=== PATIENT | female | born 1985 | race Caucasian/White ===

== ENCOUNTER → 2017-01-04 | Outpatient (CLI) | payer BC ==
[~2017-01-04] MED LIST: AMOX250S70 PO; CATHETER FLUSH 10 ML SYR IV PRN; DOXY100T2 PO
--- OUTSIDE RECORDS SUMMARY | 2017-01-04 09:59 | XMS REPORT | Continuity of Care Document ---
Author Author [facility] Address Unknown Phone Unavailable Allergies Active Description Code Type Severity Reaction Onset Reported/Identified Relationship to Patient Clinical Status Yes CITRUS CITRUS Unknown N/A 10/25/2012 Yes egg [id number] Drug Allergy Unknown N/A 10/25/2012 Yes Sulfa (Sulfonamide Antibiotics) [id number] Drug Allergy Unknown HIVES 10/25/2012 Medications Problems Date Dx Coded Attending Type Code Diagnosis Diagnosed By 10/25/2012 Ot 620.2 OVARIAN CYST NEC/NOS 10/25/2012 Ot 789.03 ABDOMINAL PAIN, RIGHT LOWER QUADRANT 08/05/2014 PREETHI MORTENSEN DO V74.1 TB SCREENING 01/06/2016 Ot 620.2 01/06/2016 Ot 789.04 04/12/2016 STOOALIYAH E ASSISTED LIVING CARE MANAGER Ot N83.9 NONINFLAMMATORY DISORD OF OVARY, FALLOP 04/13/2016 SOTO ALIYAH E ASSISTED LIVING CARE MANAGER Ot N83.9 NONINFLAMMATORY DISORD OF OVARY, FALLOP 05/24/2016 Ot 620.2 OVARIAN CYST NEC/NOS 05/24/2016 Ot 789.04 ABDOMINAL PAIN, LEFT LOWER QUADRANT 05/30/2016 SOTOALIYAH E ASSISTED LIVING CARE MANAGER Ot N83.9 NONINFLAMMATORY DISORD OF OVARY, FALLOP 07/27/2016 Ot 620.2 OVARIAN CYST NEC/NOS 07/27/2016 Ot 789.04 ABDOMINAL PAIN, LEFT LOWER QUADRANT 10/31/2016 Ot 620.2 OVARIAN CYST NEC/NOS 10/31/2016 Ot 789.04 ABDOMINAL PAIN, LEFT LOWER QUADRANT 10/31/2016 Ot 620.2 OVARIAN CYST NEC/NOS 10/31/2016 Ot 789.04 ABDOMINAL PAIN, LEFT LOWER QUADRANT 11/16/2016 SOTOALIYAH E ASSISTED LIVING CARE MANAGER Ot N83.9 NONINFLAMMATORY DISORD OF OVARY, FALLOP 11/16/2016 RANDI BURROUGHS ASSISTED LIVING CARE MANAGER Ot G43.A0 CYCLICAL VOMITING, NOT INTRACTABLE 11/16/2016 RANDI BURROUGHS ASSISTED LIVING CARE MANAGER Ot R10.11 RIGHT UPPER QUADRANT PAIN 11/17/2016 RANDI BURROUGHS ASSISTED LIVING CARE MANAGER Ot G43.A0 CYCLICAL VOMITING, NOT INTRACTABLE 11/17/2016 RANDI BURROUGHS ASSISTED LIVING CARE MANAGER Ot R10.11 RIGHT UPPER QUADRANT PAIN 12/04/2016 RANDI BURROUGHS ASSISTED LIVING CARE MANAGER Ot G43.A0 CYCLICAL VOMITING, NOT INTRACTABLE 12/04/2016 RANDI BURROUGHS ASSISTED LIVING CARE MANAGER Ot R10.11 RIGHT UPPER QUADRANT PAIN Procedures Code [place] [address] TB TEST INTRADERMAL 08/05/2014 Results Encounters ACCT No. Visit Date/Time Discharge Status Pt. Type Provider Facility Loc./Unit Complaint [id number] 08/05/2014 14:58:00 08/05/2014 23: 59:59 [facility] Outpatient PREETHI MORTENSEN DO
--- NOTE | 2017-01-04 13:14 | Diagnostic Imaging Report ---
CLINICAL INDICATION: Patient with epigastric pain. COMPARISON: Gallbladder ultrasound dated 11/16/2016. PROCEDURE: The patient was administered 5.42 millicuries of technetium 99m Choletec. After 60 minutes of the images, one can of Ensure was drink followed by another 60 minutes of imaging. A nuclear medicine hepatobiliary scan with ejection fraction was performed. FINDINGS: There is prompt uptake and excretion of radiotracer by the liver. Activity is visible in the gallbladder by 15 minutes and the small bowel by 30 minutes. Ejection fraction of the gallbladder is calculated at 76% (normal >35%). The gallbladder visibly empties on the scans following the ingestion of Ensure. IMPRESSION: Normal hepatobiliary scan with normal gallbladder ejection fraction of 76%. Dictated by: Dictated on workstation # [id number]
== END ==
LOC: CARD 09:56
PROVIDERS: ATTEND Nurse Practitioner
DX: R10.13 Epigastric pain (principal); R11.2 Nausea with vomiting, unspecified
CPT/HCPCS: 78227

== ENCOUNTER → 2017-03-13 | Emergency (ER) | payer BC ==
[~2017-03-13] VITALS: Ht 170.2 cm; Wt 61.2 kg
[~2017-03-13] MED LIST changes: -CATHETER FLUSH 10 ML SYR IV PRN; +TETANUS,DIPTH,PERTUSS P/F (BOOSTRIX) 0.5 ML VIAL IM ONE
--- NOTE | 2017-03-13 11:13 | ED General ---
General Chief Complaint: Bite-Animal/Human/Insect Stated Complaint: CAT BITES LEFT HAND Nursing Triage Note: c/o numerous cat bites to left arm and left leg. It was the patient's own cat. Mild swelling and bruising noted. Nursing Sepsis Screen: No Definite Risk Source of Information: Patient Exam Limitations: No Limitations History of Present Illness Time Seen by Provider: 10:30 Initial Comments Patient presents with numerous cat bites on her fingers, forearms, and left leg along with numerous scratches. She has an aggressive unneutered male cat at home who has attacked her several times. The cat is vaccinated and used for breeding purposes. The incident happened yesterday. Pain has been persistent and she has localized erythema and swelling around the majority of the wounds. She has not yet taken antibiotics. She did take a shower quickly after the accident and washed her wounds. Allergies and Home Medications Allergies Coded Allergies: Sulfa (Sulfonamide Antibiotics) (Verified Allergy, Unknown, HIVES, 01/04/17) egg (Verified Allergy, Unknown, 10/25/12) Uncoded Allergies: CITRUS (Allergy, Unknown, 10/25/12) Home Medications Amoxicillin/Potassium Clav 250 Mg/5 Ml Susp.recon, 10 ML PO BID, #200 Prescribed by: LORENZO MOONEY on 03/13/17 1111 Doxycycline Hyclate 100 Mg Tablet, 100 MG PO BID, #14 Prescribed by: LORENZO MOONEY on 03/13/17 1111 Constitutional: no symptoms reported EENTM: no symptoms reported : No Musculoskeletal: see HPI Skin: see HPI Psychiatric/Neurological: No Symptoms Reported Past Viaabrp-Vjuqsu-Vfpqby Hx Patient Social History Alcohol Use: Denies Use Recreational Drug Use: No Smoking Status: Never a Smoker Recent Foreign Travel: No Contact w/Someone Who Travel: No Recent Infectious Disease Expo: No Recent Hopitalizations: No Surgeries HX Surgeries: No Respiratory Hx Respiratory Disorders: No Cardiovascular Hx Cardiac Disorders: No Neurological Hx Neurological Disorders: No Reproductive System Hx Reproductive Disorders: No Genitourinary Hx Genitourinary Disorders: No Gastrointestinal Hx Gastrointestinal Disorders: Yes Gastrointestinal Disorders: Gastroesophageal Reflux Musculoskeletal Hx Musculoskeletal Disorders: No Endocrine Hx Endocrine Disorders: No HEENT HX ENT Disorders: No Cancer Hx Cancer: No Psychosocial Hx Psychiatric Problems: No Integumentary HX Skin/Integumentary Disorder: No Blood Transfusions Hx Blood Disorders: No Physical Exam Vital Signs Vital Sign - Last 12Hours 03/13/17 10:52 Temp 97.5 Pulse 82 Resp 16 B/P (MAP) 110/82 Pulse Ox 100 Capillary Refill : Less Than 3 Seconds General Appearance: No Apparent Distress, WD/WN HEENT: Normal ENT Inspection Respiratory: No Respiratory Distress Extremity: Other (numerous punctures, abrasions, and scratches throughout both upper extremities and the left lower extremity. The left hand is the most injured portion of her body. There is localized swelling and erythema around many of the wounds.) Neurologic/Psychiatric: Alert, Oriented x3, No Motor/Sensory Deficits, Normal Mood/Affect, licensing worker II-XII Norm as Tested Skin: Normal Color, Warm/Dry, Other (see above) Progress/Results/Core Measures Results/Orders Vital Signs/I&O Blood Pressure Mean: 91 Progress Note : Progress Note Patient requested small pills or liquid medication as she has difficulty swallowing large pills. She denied as she has not had intercourse in 3 months and had a recent menstrual cycle. Because of the presence of swelling and erythema around her wounds, double therapy was provided with Augmentin and doxycycline. 03/16/17 - Tetanus immunization was not administered prior to patient departure. Patient was contacted by phone and advised to return for this immunization. She stated she intended to return after work to have the tetanus booster administered. Patient did not show. Departure Impression Impression: Primary Impression: Cat bite Qualified Codes: W55.01XA - Bitten by cat, initial encounter Disposition: HOME, SELF-CARE Condition: Stable Departure-Patient Inst. Decision time for Depature: 11:08 Referrals: ABAD CÁRDENAS DO (PCP/Family) Primary Care Physician Patient Instructions: Animal Bites (DC) Add. Discharge Instructions: You may take Ibuprofen up to 600 mg every 6 hours as needed for pain. Add Tylenol up to 650 mg every 4 hours as needed for additional pain relief. Complete your antibiotics as prescribed. Return to care if symptoms worsen. All discharge instructions reviewed with patient and/or family. Voiced understanding. Scripts Amoxicillin/Potassium Clav (Augmentin 250-62.5 mg/5 ml) 250 Mg/5 Ml Susp.recon 10 ML PO BID, #200 ML Prov: LORENZO MORA MD 03/13/17 Doxycycline Hyclate (Doxycycline Hyclate) 100 Mg Tablet 100 MG PO BID, #14 TAB Prov: LORENZO MORA MD 03/13/17 LORENZO MORA MD Mar 13, 2017 11:13
[2017-03-13 11:23] VITALS: BP 108/70
== END | disposition home or self-care (01) ==
LOC: EDUNIT# 10:29 → ER 10:31
DX: S61.452A Open bite of left hand, initial encounter (principal); S50.812A Abrasion of left forearm, initial encounter; S80.812A Abrasion, left lower leg, initial encounter; W55.01XA Bitten by cat, initial encounter; W55.03XA Scratched by cat, initial encounter; Y92.009 Unspecified place in unspecified non-institutional (private) residence as the place of occurrence of the external cause; Y99.8 Other external cause status
CPT/HCPCS: 99283

== ENCOUNTER → 2017-08-24 | Outpatient (CLI) | payer BC ==
[~2017-08-24] MED LIST changes: -TETANUS,DIPTH,PERTUSS P/F (BOOSTRIX) 0.5 ML VIAL IM ONE
--- NOTE | 2017-08-24 17:46 | Diagnostic Imaging Report ---
INDICATION: Pelvic pain x3 years. COMPARISON: 01/31/2016. FINDINGS: The uterus measures 6.7 x 4.6 x 3.6 cm. Endometrial stripe measures 6 mm. No myometrial masses are seen. The right ovary is not well visualized though does not appear enlarged. The left ovary measures 3.7 x 3.1 x 2.5 cm. There is a complex cyst present measuring approximately 2 x 1.6 cm. There is normal blood flow to the ovaries. There is no free fluid. IMPRESSION: Complex cyst left ovary measuring 2 x 1.6 cm. Right ovary not well visualized. Dictated by: Dictated on workstation # [id number]
== END ==
LOC: RAD 14:31
PROVIDERS: ATTEND Family Medicine
DX: N83.202 Unspecified ovarian cyst, left side (principal); N93.9 Abnormal uterine and vaginal bleeding, unspecified
CPT/HCPCS: 76830; 76856

== ENCOUNTER 2017-10-08 05:29 | Outpatient (CLI) | payer BC ==
[~2017-10-08] VITALS: Ht 162.6 cm; Wt 61.2 kg
== END 2017-10-08 12:40 ==
LOC: PREOP 05:29
PROVIDERS: ATTEND Obstetrics & Gynecology
DX: Z01.818 Encounter for other preprocedural examination (principal); R10.32 Left lower quadrant pain; R10.2 Pelvic and perineal pain; N83.202 Unspecified ovarian cyst, left side

== ENCOUNTER 2017-10-11 08:21 | Day surgery (SDC) | payer BC ==
[~2017-10-11] VITALS: Ht 162.6 cm; Wt 61.2 kg
[2017-10-11] MEDS ORDERED: BUPIVACAINE 0.25% 30 ML (SENSORCAINE) VIAL ONE (08:25)
--- OUTSIDE RECORDS SUMMARY | 2017-10-11 08:27 | XMS REPORT | Continuity of Care Document ---
Author Author [facility] Address Unknown Phone Unavailable Allergies Active Description Code Type Severity Reaction Onset Reported/Identified Relationship to Patient Clinical Status Yes CITRUS CITRUS Unknown N/A 10/25/2012 Yes egg [id number] Drug Allergy Unknown N/A 10/25/2012 Yes Sulfa (Sulfonamide Antibiotics) [id number] Drug Allergy Unknown HIVES 01/04/2017 Medications Problems Date Dx Coded Attending Type Code Diagnosis Diagnosed By 10/25/2012 Ot 620.2 OVARIAN CYST NEC/NOS 10/25/2012 Ot 789.03 ABDOMINAL PAIN, RIGHT LOWER QUADRANT 08/05/2014 PREETHI MORTENSEN DO V74.1 TB SCREENING 01/06/2016 Ot 620.2 01/06/2016 Ot 789.04 04/12/2016 SOTO ALIYAH E MAINTENANCE SUPERVISOR ELECTRICAL Ot N83.9 NONINFLAMMATORY DISORD OF OVARY, FALLOP 04/13/2016 SOTO, ALIYAH E MAINTENANCE SUPERVISOR ELECTRICAL Ot N83.9 NONINFLAMMATORY DISORD OF OVARY, FALLOP 05/24/2016 Ot 620.2 OVARIAN CYST NEC/NOS 05/24/2016 Ot 789.04 ABDOMINAL PAIN, LEFT LOWER QUADRANT 05/30/2016 SOTO, ALIYAH E MAINTENANCE SUPERVISOR ELECTRICAL Ot N83.9 NONINFLAMMATORY DISORD OF OVARY, FALLOP 07/27/2016 Ot 620.2 OVARIAN CYST NEC/NOS 07/27/2016 Ot 789.04 ABDOMINAL PAIN, LEFT LOWER QUADRANT 10/31/2016 Ot 620.2 OVARIAN CYST NEC/NOS 10/31/2016 Ot 789.04 ABDOMINAL PAIN, LEFT LOWER QUADRANT 10/31/2016 Ot 620.2 OVARIAN CYST NEC/NOS 10/31/2016 Ot 789.04 ABDOMINAL PAIN, LEFT LOWER QUADRANT 11/16/2016 SOTO, ALIYAH E MAINTENANCE SUPERVISOR ELECTRICAL Ot N83.9 NONINFLAMMATORY DISORD OF OVARY, FALLOP 11/16/2016 RANDI BURROUGHS MAINTENANCE SUPERVISOR ELECTRICAL Ot G43.A0 CYCLICAL VOMITING, NOT INTRACTABLE 11/16/2016 RANDI BURROUGHS MAINTENANCE SUPERVISOR ELECTRICAL Ot R10.11 RIGHT UPPER QUADRANT PAIN 11/17/2016 RANDI BURROUGHS MAINTENANCE SUPERVISOR ELECTRICAL Ot G43.A0 CYCLICAL VOMITING, NOT INTRACTABLE 11/17/2016 CONCHIS BURROUGHSYL [place] MAINTENANCE SUPERVISOR ELECTRICAL Ot R10.11 RIGHT UPPER QUADRANT PAIN 12/04/2016 CONCHIS BURROUGHSYL [place] MAINTENANCE SUPERVISOR ELECTRICAL Ot G43.A0 CYCLICAL VOMITING, NOT INTRACTABLE 12/04/2016 RANDI BURROUGHS MAINTENANCE SUPERVISOR ELECTRICAL Ot R10.11 RIGHT UPPER QUADRANT PAIN 01/05/2017 SANDEEP EMMANUELLE N SUPERINTENDENT ELECTRIC POWER Ot R10.13 EPIGASTRIC PAIN 01/05/2017 SANDEEP EMMANUELLE N SUPERINTENDENT ELECTRIC POWER Ot R11.2 NAUSEA WITH VOMITING, UNSPECIFIED 01/05/2017 SANDEEP EMMANUELLE N SUPERINTENDENT ELECTRIC POWER Ot R10.13 EPIGASTRIC PAIN 01/05/2017 SANDEEP EMMANUELLE N SUPERINTENDENT ELECTRIC POWER Ot R11.2 NAUSEA WITH VOMITING, UNSPECIFIED 01/15/2017 Ot 620.2 OVARIAN CYST NEC/NOS 01/15/2017 Ot 789.04 ABDOMINAL PAIN, LEFT LOWER QUADRANT 01/18/2017 SANDEEP EMMANUELLE N SUPERINTENDENT ELECTRIC POWER Ot R10.13 EPIGASTRIC PAIN 01/18/2017 SANDEEP EMMANUELLE [place] SUPERINTENDENT ELECTRIC POWER Ot R11.2 NAUSEA WITH VOMITING, UNSPECIFIED 01/31/2017 Ot 620.2 OVARIAN CYST NEC/NOS 01/31/2017 Ot 789.04 ABDOMINAL PAIN, LEFT LOWER QUADRANT 01/31/2017 Ot 620.2 OVARIAN CYST NEC/NOS 01/31/2017 Ot 789.04 ABDOMINAL PAIN, LEFT LOWER QUADRANT 02/07/2017 Ot 620.2 OVARIAN CYST NEC/NOS 02/07/2017 Ot 789.04 ABDOMINAL PAIN, LEFT LOWER QUADRANT 03/28/2017 ABBY BERNARD, LORENZO Christian Ot S50.812A ABRASION OF LEFT FOREARM, INITIAL ENCOUN 03/28/2017 LORENZO MORA MD Ot S61.452A OPEN BITE OF LEFT HAND, INITIAL ENCOUNTE 03/28/2017 ABBY BERNARD, LORNEZO Christian Ot S80.812A ABRASION, LEFT LOWER LEG, INITIAL ENCOUN 03/28/2017 ABBY BERNARD, LORENZO Christian Ot W55.01XA BITTEN BY CAT, INITIAL ENCOUNTER 03/28/2017 ABBY BERNARD, LORENZO Christian Ot W55.03XA SCRATCHED BY CAT, INITIAL ENCOUNTER 03/28/2017 ABBY BERNARD, LORENZO Christian Ot Y92.[address] [facility] [address] IN [facility] 03/28/2017 ABBY BERNARD, LORENZO Christian Ot Y99.8 OTHER EXTERNAL CAUSE STATUS 09/05/2017 ABAD CÁRDENAS DO Ot N83.202 UNSPECIFIED OVARIAN CYST, LEFT SIDE 09/05/2017 ABAD CÁRDENAS DO Ot N93.9 ABNORMAL UTERINE AND VAGINAL BLEEDING , U 10/09/2017 RYAN TAPIA DO Ot N83.202 UNSPECIFIED OVARIAN CYST, LEFT SIDE 10/09/2017 RYAN TAPIA DO Ot R10.2 PELVIC AND PERINEAL PAIN 10/09/2017 RYAN TAPIA DO Ot R10.32 LEFT LOWER QUADRANT PAIN 10/09/2017 RYAN TAPIA DO Ot Z01.818 ENCOUNTER FOR OTHER PREPROCEDURAL EXAMIN Procedures Code [place] [address] TB TEST INTRADERMAL 08/05/2014 Results Encounters ACCT No. Visit Date/Time Discharge Status Pt. Type Provider Facility Loc./Unit Complaint [id number] 08/05/2014 14:58:00 08/05/2014 23: 59:59 CLS Outpatient FESTUS PREETHI Mahad [id number] 10/08/2017 05:29:00 2016 12:40:00 DIS Outpatient RYAN TAPIA DO [facility] PREOP DIAG. LAPAROSCOPY W/CHROMOTUBATION [id number] 08/24/2017 14:31:00 2016 23:59:59 CLS Outpatient ABAD CÁRDENAS DO [facility] RAD PELVIC PAIN, HX OF OVARIAN CYST [id number] 03/13/2017 10:31:00 2016 11:23:00 DIS Emergency LORENZO MORA MD [facility] ER CAT BITES LEFT HAND [id number] 01/04/2017 09:56:00 2016 23:59:59 CLS Outpatient EMMANUELLE HOPKINS APRN [facility] CARD EPIGASTRIC PAIN [id number] 11/16/2016 07:14:00 2015 23:59:59 CLS Outpatient RANDI BURROUGHS MAINTENANCE SUPERVISOR ELECTRICAL [facility] RAD RUQ ABD PAIN [id number] 01/31/2016 15:28:00 2015 23:59:59 CLS Outpatient ALIYAH SOTO MAINTENANCE SUPERVISOR ELECTRICAL [facility] RAD ENLARGED OVARY,OVARIAN MASS [id number] 10/11/2017 07:30:00 PEN Preadmit RYAN TAPIA DO [facility] SDC CHRONIC PELVIC PAIN, LLQ PAIN, LT OVARIAN CYST [id number] 10/25/2012 15:22:00 Document Registration [id number] 10/18/2011 14:52:00 Document Registration
--- OUTSIDE RECORDS SUMMARY | 2017-10-11 08:27 | XMS REPORT ---
Author Author RANDI BURROUGHS Organization [facility] Address [address] [place] [address] Care Team Providers Care Country Printer Name Role Phone CANDACEStefaniaRANDI Unavailable PROBLEMS Type Condition ICD9-CM Code NYR56-SX Code Onset Dates Condition Status SNOMED Code Problem Non-intractable cyclical vomiting with nausea G43.A0 Active 91789107 Problem Screening examination for pulmonary tuberculosis V74.1 Active [id number] ALLERGIES Substance Reaction Event Type Date Status SulfADIAZINE Sodium Unknown Drug Allergy Oct, Active citrus Unknown Non Drug Allergy Oct, Active eggs Unknown Non Drug Allergy Oct, Active wheat Unknown Non Drug Allergy Oct, Active barley Unknown Non Drug Allergy Oct, Active SOCIAL HISTORY No smoking Hx information available PLAN OF CARE Activity Details Follow Up prn Reason: VITAL SIGNS Height 65 in 2016-11-09 Weight 128.6 lbs 2016-11-09 Temperature 98.7 degrees Fahrenheit 2016-11-09 Heart Rate 76 bpm 2016-11-09 Respiratory Rate 20 2016-11-09 BMI 21.40 kg/m2 2016-11-09 Blood pressure systolic 98 mmHg 2016-11-09 Blood pressure diastolic 60 mmHg 2016-11-09 MEDICATIONS Medication Instructions Dosage Frequency Start Date End Date Duration Status Zofran ODT 4 MG Orally every 8 hrs 1 tablet on the tongue and allow to dissolve 8h Aug, 05 days Active RESULTS Name Result Date Reference Range Ultrasound : Abdominal, COMPLETE 2016-11-16 PROCEDURES Procedure Date Ordered Related Diagnosis Body Site Office Visit, Est Pt., Level 4 Nov 09, 2016 IMMUNIZATIONS No Known Immunizations
[2017-10-11] MEDS ORDERED: ATRACURIUM 50 MG/5 ML (TRACRIUM) IV ONE (08:45)
[2017-10-11] MEDS ORDERED: MIDAZOLAM 2 MG/2 ML (VERSED) VIAL ONE (08:47)
[2017-10-11] MEDS ORDERED: HURRICAINE EXT TUBE (BENZOCAINE) ONE (08:47)
[2017-10-11] MEDS ORDERED: SEVOFLURANE (ULTANE) 15 ML INHAL SOLN ONE ×5 (08:47→10:10)
[2017-10-11] MEDS ORDERED: LIDOCAINE PF 2% 5 ML (XYLOCAINE) VIAL ONE (08:47)
[2017-10-11] MEDS ORDERED: fentaNYL INJECTION 100 MCG/2 ML AMP ONE (08:47)
[2017-10-11] MEDS ORDERED: LACTATED RINGERS 1,000 ML IV ONE (08:47)
[2017-10-11] MEDS ORDERED: DEXAMETHASONE 10 MG/ML (DECADRON) 1 ML VIAL ONE (08:47)
[2017-10-11] MEDS ORDERED: proPOfol 200 MG/20 ML (DIPRIVAN) VIAL IV ONE (08:47)
--- NOTE | 2017-10-11 08:48 | Progress Note-Pre Operative ---
Pre-Operative Progress Note H&P Reviewed The H&P was reviewed, patient examined and no changes noted. Date Seen by Provider: Oct 11, 2017 Time Seen by Provider: 08:45 Date H&P Reviewed: Oct 11, 2017 Time H&P Reviewed: 08:40 Pre-Operative Diagnosis: Complex left adnexal cyst, CPP RYAN TAPIA DO Oct 11, 2017 8:48 am
[2017-10-11 09:02] LABS: BASOPHILS % (AUTO) 0 % (0-10); EOSINOPHILS # (AUTO) 0.2 10^3/uL (0.0-0.3); EOSINOPHILS % (AUTO) 2 % (0-10); LYMPHOCYTES # (AUTO) 3.1 X 10^3 (1.0-4.0); LYMPHOCYTES % (AUTO) 32 % (12-44); MEAN CORPUSCULAR HEMOGLOBIN 30 PG (25-34); MEAN CORPUSCULAR HGB CONC 34 G/DL (32-36); MEAN CORPUSCULAR VOLUME 90 FL (80-99); MEAN PLATELET VOLUME 8.8 FL (7.4-10.4); MONOCYTES # (AUTO) 0.6 X 10^3 (0.0-1.0); MONOCYTES % (AUTO) 6 % (0-12); NEUTROPHILS # (AUTO) 5.9 X 10^3 (1.8-7.8); NEUTROPHILS % (AUTO) 60 % (42-75); PLATELET COUNT 367 10^3/uL (130-400); RED BLOOD COUNT 4.47 10^6/uL (4.35-5.85); WHITE BLOOD COUNT 9.7 10^3/uL (4.3-11.0)
[2017-10-11] MEDS ORDERED: LACTATED RINGERS 1,000 ML IV PRN (09:05)
[2017-10-11 09:11] VITALS: BP 113/70
[2017-10-11] MEDS ORDERED: FAMOTIDINE 20MG/2ML IV (PEPCID) IV ONE (09:15)
[2017-10-11] MEDS ORDERED: ESMOLOL 100 MG/10 ML (BREVIBLOC) VIAL ONE (09:38)
[2017-10-11] MEDS ORDERED: INDIGO CARMINE 8 MG/ML 5 ML AMP ONE (10:10)
[2017-10-11] MEDS ORDERED: NEOSTIGMINE (BLOXIVERZ ) 1 MG/1ML 10 ML VIAL ONE (10:25)
[2017-10-11] MEDS ORDERED: GLYCOPYRROLATE 0.2 MG/ML (ROBINUL) 2 ML VIAL ONE (10:25)
[2017-10-11] MEDS ORDERED: morphine PF (DURAMORPH) 10 MG/10 ML AMP ONE (10:27)
[2017-10-11] MEDS ORDERED: ONDANSETRON 4 MG/2 ML (SDV) Z0FRAN ONE (10:32)
[2017-10-11] MEDS ORDERED: PROMETHAZINE INJ 25 MG/ML (PHENERGAN) AMP ONE (10:40)
[2017-10-11] MEDS ORDERED: HYDROmorphone (DILAUDID) 2 MG/ML VIAL IVP PRN (10:45)
[2017-10-11] MEDS ORDERED: fentaNYL INJECTION 100 MCG/2 ML AMP IVP PRN (10:45)
[2017-10-11] MEDS ORDERED: KETOROLAC 30 MG/ML VIAL ONE (10:46)
[2017-10-11] MEDS ORDERED: D5 LR IV SOLUTION 1,000 ML IV SCH (10:53)
[2017-10-11] MEDS ORDERED: HYDR15SO8 PO (10:59)
[2017-10-11] MEDS ORDERED: IBUP100O27 PO (10:59)
[2017-10-11] MEDS ORDERED: KETOROLAC 30 MG/ML VIAL IVP ONE (11:00)
[2017-10-11] MEDS ORDERED: PROMETHAZINE INJ 25 MG/ML (PHENERGAN) AMP IVP ONE (11:00)
[2017-10-11] MEDS ORDERED: HYDROcodone/APAP 7.5MG-325 MG/15 ML (LORTAB) UDC PO PRN (11:00)
[2017-10-11] MEDS ORDERED: ONDANSETRON 4 MG/2 ML (SDV) Z0FRAN IVP PRN (11:00)
--- NOTE | 2017-10-11 11:00 | Discharge Inst-Women's Service ---
Discharge Inst-Women's Serv Depart Medication/Instructions New, Converted or Re-Newed RX: RX on Chart Final Diagnosis Endometriosis Activity Activity: Activity as Tolerated Driving Instructions: You May Drive (do not drive while still taking hydrocodone) NO SMOKING: NO SMOKING Nothing Inside Vagina: No Douching, No [place], No Tampons Diet Discharge Diet: No Restrictions Symptoms to Report to : Bleeding Excessive, Pain Increased, Fever Over 101 Degrees F, Vaginal Bleeding Increase, Questions/Concerns For Any Problems or Questions: Contact Your Physician Skin/Wound Care Infection Signs and Symptoms: Increased Redness, Foul Odor of Wound, Increased Drainage, Skin Itchy or Has a Rash, Increased Swelling, Temperature Above 101 F Operative Area Clean and Dry: Keep Incision Clean/Dry Stitches/[place]/Dermabond: Dermabond Bathing Instructions: RYAN Champion DO Oct 11, 2017 11:00
[2017-10-11] MEDS ORDERED: ONDANSETRON 4 MG/2 ML (SDV) Z0FRAN IVP ONE (11:15)
[2017-10-11 11:51] VITALS: BP 112/71
[2017-10-11 12:29] VITALS: BP 106/69
--- NOTE | 2017-10-11 14:06 | OPERATIVE REPORT ---
DATE OF SERVICE: 10/11/2017 PREOPERATIVE DIAGNOSES: 1. A 32-year-old female with chronic pelvic pain. 2. Dyspareunia. 3. Left adnexal complex cystic structure on ultrasound. POSTOPERATIVE DIAGNOSES: 1. A 32-year-old female with chronic pelvic pain. 2. Dyspareunia. 3. Left adnexal complex cystic structure on ultrasound. 4. Severe endometriosis with dense adhesions of the posterior cul-de-sac and obliteration of the posterior cul-de-sac, bilateral patent fallopian tubes on chromotubation. PROCEDURE: Operative laparoscopy with extensive lysis of adhesions greater than 45 minutes long and chromotubation. SURGEON: Ryan Olvera DO RADIOLOGIC TECHNOLOGIST MAMMOGRAM: MILI Clifton ANESTHESIA: General endotracheal. ESTIMATED BLOOD LOSS: Minimal. URINE OUTPUT: 75 mL clear to the procedure. FLUIDS: 1200 mL lactate Ringer solution. FINDINGS: A normal anterior vesicouterine pouch, a uterus that is densely adhesed to the descending sigmoid colon, adhesions of the left adnexa that have cemented the ovary into the left ovarian fossa, similarly on the right side there is a right ovary that is cemented to the right ovarian fossa, obliteration of the posterior cul-de-sac with dense adhesions as well as filmy adhesions of the colon to the left adnexa. SPECIMEN SENT: None. INDICATIONS FOR PROCEDURE: This 32-year-old female was a self-consultation in my office for ongoing issues with infertility; however, more importantly recently she has had a significant amounts of pain that she has noted with intercourse, pain with defecation and pain with her menstrual cycle. I discussed with the patient the possibility of this being underlyingly related to endometriosis. She has never been diagnosed with this before and had been on control pills for a significant amount of time in the past; however, now she wishes on to attempt and is having these significant issues. I discussed with the patient performing diagnostic laparoscopy to ensure tubal patency for the achievement of conception, but also to diagnose with possible endometriosis. Risks of the procedure were discussed with the patient in detail including risk for bleeding, infection, damage to any surrounding structures including but not limited to the uterus, bowel, bladder, ureter, kidneys, loss of fertility with the procedure, removal of ovaries, blood transfusion, risk from anesthesia, postoperative complications, and expectations and even . After everything is discussed the patient, consent was obtained in the preoperative area with her parents present and the patient was taken to the operating room. OPERATIVE REPORT IN DETAIL: Once in the operating room, general anesthesia was found to be adequate, placed in dorsal lithotomy position, prepped and draped in normal sterile fashion. She was first examined under anesthesia. The uterus was not enlarged, freely mobile; however, fixed somewhat to the posterior wall. There is no adnexal fullness or masses appreciated on bimanual examination. A weighted speculum inserted into the patient's vagina after Simons catheter was placed using sterile technique. A right-angle retractor was used to visualize the cervix. It was grasped at 12 o'clock position using a single-tooth tenaculum. It is extremely difficult to dilate her cervix on multiple attempts using the sound and even lacrimal dilators, we were finally able to pass through the cervix and gently dilate her cervix to a dilatation of approximately 6 mm using José dilators. I believe this is due to the significant change in the angle of her cervicouterine angle based on that significant adhesions of the posterior cul-de-sac. Once intrauterine access was obtained and finally able to place a Kronner uterine manipulator and deployed balloon in endometrial canal. Once this is in place, the uterus also sounded to 8 cm and the Kronner set to that depth. Once everything was in place, I performed a change of gloves and turned my attention to the abdomen where infraumbilically I infiltrated the skin using 0.25% Marcaine made a 5-mm incision, directed Veress needle through this incision until intraperitoneal placement was confirmed using a saline drop test to proceed with insufflation of CO2 gas to an opening pressure of 5 mmHg was noted. I proceed to maximum pressure of 15 mmHg and then removed the Veress needle, introduced the 5 mm blunt laparoscopic trocar. Once this is in place, I am able to confirm intraperitoneal placement using the 5-mm laparoscope. I have the patient placed in steep Trendelenburg and I am unable to freely manipulate her uterus due to this. I placed two separate trocars, one in the left lower quadrant and suprapubically. These were both 5 mm and placed under direct visualization of the laparoscope. Once these are in place, I am able to do some manipulation of the uterus and some sharp dissection using EndoShears of the filmy adhesions of the left sigmoid descending colon to the left adnexa. Once these filmy adhesions were taken down, there is still obliteration of the posterior cul-de-sac that has to be taken down and this is done with care using blunt dissection. This takes approximately 45 minutes due to its proximity to the bowel and my concern with bowel injury. Once this is all taken down and the pouch of Valdo is visible, I copiously irrigated the pelvis using normal saline. There was no active bleeding noted from any my dissection planes. I then push indigo carmine through my Stream [employer]er uterine manipulator and after a slight bit of resistance the indigo carmine does go through the uterus and spilled out of the fallopian tubes showing tubal patency bilaterally. I also ablated some endometriosis as noted on the left ovary using my monopolar EndoShears. After this was done, I noted that there is complete hemostasis of the pelvis. I copiously irrigated once again to clean up all of the indigo carmine dye that I can. I then released insufflation and take the patient out of steep Trendelenburg. We removed the trocars and after insufflation was removed through the trocar sites. The 5 mm trocars the incisions were closed using Dermabond and Band-Aids are placed over this. Simons catheter was removed as well. The patient tolerated the procedure well, sent to recovery in stable condition. Lap and sponge counts correct at the end of procedure. Instrument counts were correct as well. Job ID: [id number] DocumentID: [id number] Dictated Date: 10/11/2017 11:23:22 Architectural Project Captain Date: 10/11/2017 14:06:14 Dictated By: RYAN OLVERA DO
[2017-10-11] MEDS ORDERED: IBUPROFEN SUSP 100MG/5ML (MOTRIN) UDC PO PRN (17:00)
== END 2017-10-11 12:47 | disposition home or self-care (01) ==
LOC: SDC 08:21
PROVIDERS: ATTEND Obstetrics & Gynecology
DX: R10.2 Pelvic and perineal pain (principal); N94.10 Unspecified dyspareunia; N80.3 Endometriosis of pelvic peritoneum; N80.2 Endometriosis of fallopian tube; N91.1 Secondary amenorrhea; N73.6 Female pelvic peritoneal adhesions (postinfective); N83.292 Other ovarian cyst, left side
CPT/HCPCS: 36415; 84703; 85025; 86850; 86900; 86901; 87081; 94664

== ENCOUNTER 2019-01-16 16:05 | Emergency (ER) | payer BC ==
[~2019-01-16] VITALS: Ht 162.6 cm; Wt 61.2 kg
[~2019-01-16 16:05] MED LIST changes: +HYDR15SO8 PO; +IBUP100O28 PO
--- OUTSIDE RECORDS SUMMARY | 2019-01-16 16:14 | XMS REPORT | Continuity of Care Document ---
Author Author [facility] Address Unknown Phone Unavailable Allergies Active Description Code Type Severity Reaction Onset Reported/Identified Relationship to Patient Clinical Status Yes CITRUS CITRUS Unknown N/A 10/25/2012 Yes egg [id number] Drug Allergy Unknown N/A 10/25/2012 Yes Sulfa (Sulfonamide Antibiotics) [id number] Drug Allergy Unknown HIVES 01/04 Medications There is no data. Problems Date Dx Coded Attending Type Code Diagnosis Diagnosed By 10/25/2012 Ot 620.2 OVARIAN CYST NEC/NOS 10/25/2012 Ot 789.03 ABDOMINAL PAIN, RIGHT LOWER QUADRANT 08/05/2014 PREETHI MORTENSEN DO V74.1 TB SCREENING 01/06/2016 Ot 620.2 01/06/2016 Ot 789.04 04/12/2016 SOTOALIYAH BLUEPRINT MACHINE OPERATOR Ot N83.9 NONINFLAMMATORY DISORD OF OVARY, FALLOP 04/13/2016 SOTOBOLAALIYAH E BLUEPRINT MACHINE OPERATOR Ot N83.9 NONINFLAMMATORY DISORD OF OVARY, FALLOP 05/24/2016 Ot 620.2 OVARIAN CYST NEC/NOS 05/24/2016 Ot 789.04 ABDOMINAL PAIN, LEFT LOWER QUADRANT 05/30/2016 SOTOALIYAH BLUEPRINT MACHINE OPERATOR Ot N83.9 NONINFLAMMATORY DISORD OF OVARY, FALLOP 07/27/2016 Ot 620.2 OVARIAN CYST NEC/NOS 07/27/2016 Ot 789.04 ABDOMINAL PAIN, LEFT LOWER QUADRANT 10/31/2016 Ot 620.2 OVARIAN CYST NEC/NOS 10/31/2016 Ot 789.04 ABDOMINAL PAIN, LEFT LOWER QUADRANT 10/31/2016 Ot 620.2 OVARIAN CYST NEC/NOS 10/31/2016 Ot 789.04 ABDOMINAL PAIN, LEFT LOWER QUADRANT 11/16/2016 SOTOALIYAH BLUEPRINT MACHINE OPERATOR Ot N83.9 NONINFLAMMATORY DISORD OF OVARY, FALLOP 11/16/2016 RANDI BURROUGHS BLUEPRINT MACHINE OPERATOR Ot G43.A0 CYCLICAL VOMITING, NOT INTRACTABLE 11/16/2016 RANDI BURROUGHS BLUEPRINT MACHINE OPERATOR Ot R10.11 RIGHT UPPER QUADRANT PAIN 11/17/2016 RANDI BURROUGHS BLUEPRINT MACHINE OPERATOR Ot G43.A0 CYCLICAL VOMITING, NOT INTRACTABLE 11/17/2016 RANDI BURROUGHS BLUEPRINT MACHINE OPERATOR Ot R10.11 RIGHT UPPER QUADRANT PAIN 12/04/2016 RANDI BURROUGHS BLUEPRINT MACHINE OPERATOR Ot G43.A0 CYCLICAL VOMITING, NOT INTRACTABLE 12/04/2016 RANDI BURROUGHS BLUEPRINT MACHINE OPERATOR Ot R10.11 RIGHT UPPER QUADRANT PAIN 01/05/2017 EMMANUELLE HOPKINS SE[employer]N MANAGER PRODUCTION Ot R10.13 EPIGASTRIC PAIN 01/05/2017 EMMANUELLE HOPKINS [employer] MANAGER PRODUCTION Ot R11.2 NAUSEA WITH VOMITING, UNSPECIFIED 01/05/2017 EMMANUELLE HOPKINS SE[employer]N MANAGER PRODUCTION Ot R10.13 EPIGASTRIC PAIN 01/05/2017 EMMANUELLE HOPKINS SEED [employer]N MANAGER PRODUCTION Ot R11.2 NAUSEA WITH VOMITING, UNSPECIFIED 01/15/2017 Ot 620.2 OVARIAN CYST NEC/NOS 01/15/2017 Ot 789.04 ABDOMINAL PAIN, LEFT LOWER QUADRANT 01/18/2017 EMMANUELLE HOPKINS SEED [employer]N MANAGER PRODUCTION Ot R10.13 EPIGASTRIC PAIN 01/18/2017 EMMANUELLE HOPKINS SEED [employer]N MANAGER PRODUCTION Ot R11.2 NAUSEA WITH VOMITING, UNSPECIFIED 01/31/2017 Ot 620.2 OVARIAN CYST NEC/NOS 01/31/2017 Ot 789.04 ABDOMINAL PAIN, LEFT LOWER QUADRANT 01/31/2017 Ot 620.2 OVARIAN CYST NEC/NOS 01/31/2017 Ot 789.04 ABDOMINAL PAIN, LEFT LOWER QUADRANT 02/07/2017 Ot 620.2 OVARIAN CYST NEC/NOS 02/07/2017 Ot 789.04 ABDOMINAL PAIN, LEFT LOWER QUADRANT 03/28/2017 ABBY BERNARD, LORENZO Christian Ot S50.812A ABRASION OF LEFT FOREARM, INITIAL ENCOUN 03/28/2017 ABBY BERNARD, LORENZO Christian Ot S61.452A OPEN BITE OF LEFT HAND, INITIAL ENCOUNTE 03/28/2017 ABBY BERNARD, LORENZO Christian Ot S80.812A ABRASION, LEFT LOWER LEG, INITIAL ENCOUN 03/28/2017 ABBY BERNARD, LORENZO Christian Ot W55.01XA BITTEN BY CAT, INITIAL ENCOUNTER 03/28/2017 ABBY BERNARD, LORENZO Christian Ot W55.03XA SCRATCHED BY CAT, INITIAL ENCOUNTER 03/28/2017 ABBY BERNARD, LORENZO Christian Ot Y92.[address] IN [facility] NON-INSTITUT (PRIVATE 03/28/2017 ABBY BERNARD, LORENZO Christian Ot Y99.8 OTHER EXTERNAL CAUSE STATUS 09/05/2017 SARAER DANIELLE SCHWAB S Ot N83.202 UNSPECIFIED OVARIAN CYST, LEFT SIDE 09/05/2017 ANTHONYNDER DODANIELLE S Ot N93.9 ABNORMAL UTERINE AND VAGINAL BLEEDING, U 10/08/2017 EUGENIOECH DO RYAN S Ot N83.202 UNSPECIFIED OVARIAN CYST, LEFT SIDE 10/08/2017 WILLIE DO RYAN S Ot R10.2 PELVIC AND PERINEAL PAIN 10/08/2017 EUGENIOECH DO RYAN S Ot R10.32 LEFT LOWER QUADRANT PAIN 10/08/2017 WILLIE DO RYAN S Ot Z01.818 ENCOUNTER FOR OTHER PREPROCEDURAL EXAMIN 10/09/2017 WILLIE DORYAN S Ot N83.202 UNSPECIFIED OVARIAN CYST, LEFT SIDE 10/09/2017 FENECH DO RYAN S Ot R10.2 PELVIC AND PERINEAL PAIN 10/09/2017 FENECH DORYAN S Ot R10.32 LEFT LOWER QUADRANT PAIN 10/09/2017 FENECH DO RYAN S Ot Z01.818 ENCOUNTER FOR OTHER PREPROCEDURAL EXAMIN 10/11/2017 EUGENIOECH DO RYAN S Ot 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.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 10/11/2017 FENECH DO RYAN S Ot 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 10/11/2017 EUGENIOECH DO RYAN S Ot 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.3 ENDOMETRIOSIS OF PELVIC PERITONEUM 10/11/2017 EUGENIOECH DO RYAN S Ot N83.292 OTHER OVARIAN CYST, LEFT SIDE 10/11/2017 FENECH DO RYAN S Ot N91.1 SECONDARY AMENORRHEA 10/11/2017 WILLIE DORYAN S Ot N94.10 UNSPECIFIED DYSPAREUNIA 10/11/2017 EUGENIOECH DO RYAN S Ot R10.2 PELVIC AND PERINEAL PAIN 10/12/2017 FENECH DO RYAN S Ot N73.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 10/12/2017 FENECH DO RYAN S Ot 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 10/12/2017 WILLIE SCHWAB RYAN Westfall Ot N80.3 ENDOMETRIOSIS OF PELVIC PERITONEUM 10/12/2017 WILILE SCHWABRYAN Malou Ot N83.292 OTHER OVARIAN CYST, LEFT SIDE 10/12/2017 WILLIE SCHWABRYAN Ot N91.1 SECONDARY AMENORRHEA 10/12/2017 WILLIE SCHWABRYAN Ot N94.10 UNSPECIFIED DYSPAREUNIA 10/12/2017 WILLIE RYAN SCHWAB Ot R10.2 PELVIC AND PERINEAL PAIN 04/19/2018 ALIYAH SOTO BLUEPRINT MACHINE OPERATOR Ot N83.9 NONINFLAMMATORY DISORD OF OVARY, FALLOP 04/19/2018 RANDI BURROUGHS BLUEPRINT MACHINE OPERATOR Ot G43.A0 CYCLICAL VOMITING, NOT INTRACTABLE 04/19/2018 RANDI BURROUGHS BLUEPRINT MACHINE OPERATOR Ot R10.11 RIGHT UPPER QUADRANT PAIN 04/19/2018 EMMANUELLE HOPKINS [employer] MANAGER PRODUCTION Ot R10.13 EPIGASTRIC PAIN 04/19/2018 EMMANUELLE HOPKINS SEED [employer]N MANAGER PRODUCTION Ot R11.2 NAUSEA WITH VOMITING, UNSPECIFIED 12/17/2018 ALIYAH SOTO BLUEPRINT MACHINE OPERATOR Ot N83.9 NONINFLAMMATORY DISORD OF OVARY, FALLOP 12/17/2018 RANDI BURROUGHS BLUEPRINT MACHINE OPERATOR Ot G43.A0 CYCLICAL VOMITING, NOT INTRACTABLE 12/17/2018 RANDI BURROUGHS BLUEPRINT MACHINE OPERATOR Ot R10.11 RIGHT UPPER QUADRANT PAIN 12/17/2018 EMMANUELLE HOPKINS [employer]N MANAGER PRODUCTION Ot R10.13 EPIGASTRIC PAIN 12/17/2018 EMMANUELLE HOPKINS [employer] MANAGER PRODUCTION Ot R11.2 NAUSEA WITH VOMITING, UNSPECIFIED 12/23/2018 ABBY BERNARD, LORENZO Christian Ot S50.812A ABRASION OF LEFT FOREARM, INITIAL ENCOUN 12/23/2018 LORENZO MORA MD Ot S61.452A OPEN BITE OF LEFT HAND, INITIAL ENCOUNTE 12/23/2018 ABBY BERNARD, LORENZO Christian Ot S80.812A ABRASION, LEFT LOWER LEG, INITIAL ENCOUN 12/23/2018 ABBY BERNARD, LORENZO Christian Ot W55.01XA BITTEN BY CAT, INITIAL ENCOUNTER 12/23/2018 ABBY BERNARD, LORENZO Christian Ot W55.03XA SCRATCHED BY CAT, INITIAL ENCOUNTER 12/23/2018 ABBY BERNARD, LORENZO Christian [facility] Y92.[address] [facility]PRIVATE 12/23/2018 ABBY BERNARD, LORENZO Christian Ot Y99.8 OTHER EXTERNAL CAUSE STATUS 12/23/2018 SARITA LEMON DOLINE Malou Ot N83.202 UNSPECIFIED OVARIAN CYST, LEFT SIDE 12/23/2018 SARITA LEMON DOBILL [place] Ot N93.9 ABNORMAL UTERINE AND VAGINAL BLEEDING, U Procedures Code [place] [address] TB TEST INTRADERMAL 08/05/2014 Results Test Result Range Urine beta human chorionic gonadotropin (hCG) measurement - 10/11/17 08:30 Urine beta human chorionic gonadotropin (hCG) measurement NEGATIVE NEGATIVE Methicillin resistant Staphylococcus aureus (MRSA) screening culture - 08:31 Methicillin resistant Staphylococcus aureus (MRSA) screening culture NEG NRG Complete blood count (CBC) with automated white blood cell (WBC) differential - 10/11/17 08:49 Blood leukocytes automated count (number/volume) 9.7 10*3/uL 4.3-11.0 Blood erythrocytes automated count (number/volume) 4.47 10*6/uL 4.35-5.85 Venous blood hemoglobin measurement (mass/volume) 13.5 g/dL 11.5-16.0 Blood hematocrit (volume fraction) 40 % 35-52 Automated erythrocyte mean corpuscular volume 90 [foz_us] 80-99 Automated erythrocyte mean corpuscular hemoglobin (mass per erythrocyte) 30 pg 25-34 Automated erythrocyte mean corpuscular hemoglobin concentration measurement ( mass/volume) 34 g/dL 32-36 Automated erythrocyte distribution width ratio 14.0 % 10.0-14.5 Automated blood platelet count (count/volume) 367 10*3/uL 130-400 Automated blood platelet mean volume measurement 8.8 [foz_us] 7.4-10.4 Automated blood neutrophils/100 leukocytes 60 % 42-75 Automated blood lymphocytes/100 leukocytes 32 % 12-44 Blood monocytes/100 leukocytes 6 % 0-12 Automated blood eosinophils/100 leukocytes 2 % 0-10 Automated blood basophils/100 leukocytes 0 % 0-10 Blood neutrophils automated count (number/volume) 5.9 10*3 1.8-7.8 Blood lymphocytes automated count (number/volume) 3.1 10*3 1.0-4.0 Blood monocytes automated count (number/volume) 0.6 10*3 0.0-1.0 Automated eosinophil count 0.2 10*3/uL 0.0-0.3 Automated blood basophil count (count/volume) 0.0 10*3/uL 0.0-0.1 Blood type T Indirect antibody screen panel - 10/11/17 08:49 ABO+Rh group OP NRG Transfusion band number [id number] NRG Blood group antibody screen NEGATIVE NRG Encounters ACCT No. Visit Date/Time Discharge Status Pt. Type Provider Facility Loc./Unit Complaint [id number] 08/05/2014 14:58:00 08/05/2014 23:59:59 CLS Outpatient FESTUS DO PREETHI Tobin [id number] 01/09/2019 09:00:00 01/09/2019 23:59:59 CLS Preadmit RYAN TAPIA DO [facility] ENDOMETRIOSIS [id number] 12/30/2018 14:00:00 12/30/2018 23:59:59 CLS Preadmit RYAN TAPIA DO [facility] RAD CHRONIC PELVIC PAIN [id number] 10/11/2017 08:21:00 10/11/2017 12:47:00 DIS Outpatient RYAN TAPIA DO [facility] CHRONIC PELVIC PAIN, LLQ PAIN, LT OVARIAN CYST [id number] 10/08/2017 05:29:00 10/08/2017 12:40:00 DIS Outpatient RYAN TAPIA DO [facility] PREOP DIAG. LAPAROSCOPY W /CHROMOTUBATION [id number] 08/24/2017 14:31:00 08/24/2017 23:59:59 CLS Outpatient DANIELLE LEMON DO [facility] RAD PELVIC PAIN, HX OF OVARIAN CYST [id number] 03/13/2017 10:31:00 03/13/2017 11:23:00 DIS Emergency ABBY BERNARD, LORENZO Christian [facility] ER CAT BITES LEFT HAND [id number] 01/04/2017 09:56:00 01/04/2017 23:59:59 CLS Outpatient EMMANUELLE HOPKINS APRN [facility] CARD EPIGASTRIC PAIN [id number] 11/16/2016 07:14:00 11/16/2016 23:59:59 CLS Outpatient RANDI BURROUGHS BLUEPRINT MACHINE OPERATOR [facility] RAD RUQ ABD PAIN [id number] 01/31/2016 15:28:00 01/31/2016 23:59:59 CLS Outpatient ALIYAH SOTO BLUEPRINT MACHINE OPERATOR [facility] RAD ENLARGED OVARY, OVARIAN MASS [id number] 10/25/2012 15:22:00 Document Registration [id number] 10/18/2011 14:52:00 Document Registration 11/201707/30/2018 09:29:23 07/30/2018 23:59:59 CLS Outpatient Danielle Lemon
[2019-01-16] MEDS ORDERED: NS IV 1000 ML 1,000 ML IV ONE (16:53)
[2019-01-16] MEDS ORDERED: D5 NS 1000 ML IV SOLUTION 1,000 ML IV STA (16:53)
[2019-01-16] MEDS ORDERED: PROMETHAZINE INJ 25 MG/ML (PHENERGAN) AMP IVP STA (16:53)
[2019-01-16 17:05] LABS: BASOPHILS % (AUTO) 0 % (0-10); EOSINOPHILS # (AUTO) 0.2 10^3/uL (0.0-0.3); EOSINOPHILS % (AUTO) 1 % (0-10); HEMATOCRIT 40 % (35-52); HEMOGLOBIN 13.6 G/DL (11.5-16.0); LYMPHOCYTES # (AUTO) 3.1 X 10^3 (1.0-4.0); LYMPHOCYTES % (AUTO) 29 % (12-44); MEAN CORPUSCULAR HEMOGLOBIN 30 PG (25-34); MEAN CORPUSCULAR HGB CONC 34 G/DL (32-36); MEAN CORPUSCULAR VOLUME 89 FL (80-99); MONOCYTES # (AUTO) 0.7 X 10^3 (0.0-1.0); MONOCYTES % (AUTO) 6 % (0-12); NEUTROPHILS # (AUTO) 6.7 X 10^3 (1.8-7.8); NEUTROPHILS % (AUTO) 63 % (42-75); PLATELET COUNT 367 10^3/uL (130-400); RED CELL DISTRIBUTION WIDTH 14.2 % (10.0-14.5); WHITE BLOOD COUNT 10.7 10^3/uL (4.3-11.0)
--- NOTE | 2019-01-16 17:10 | ED GI ---
General Chief Complaint: Abdominal/GI Problems Stated Complaint: N/V Source of Information: Patient Exam Limitations: No Limitations (KEVIN TEMPLE MD) History of Present Illness Date Seen by Provider: Jan 16, 2019 Time Seen by Provider: 16:47 Initial Comments Patient reports taking Bonjesta with only minimal improvement. Timing/Duration: Getting Worse, Other (2 weeks) Severity/Quality: Other (nausea and vomiting) Location: Generalized Abdomen Radiation: No Radiation Modifying Factors: Worsens With Eating Associated Symptoms: No Fever/Chills; Nausea/Vomiting (KEVIN TEMPLE MD) Initial Comments 33 y/o F presented to the ED for nausea and vomiting with 8-week that has been occurring/worsening over the past 2 weeks. For the first couple weeks, she vomited about 2 times per day. About 2 weeks ago, she started having vomiting throughout the day and has been unable to keep fluids and solids down. She vomits until about 5pm and then takes Unisom samples and falls asleep. She was taking an antibiotic for a urinary tract infection but thought that maybe that was the cause, so she stopped the medication per Dr. Olvera's recommendation. Dr. Olvera prescribed her some zofran for the nausea; however, she had stopped taking this medication in order to get and she didn't want it to harm her . She denies fever but does have chills and sweating with her vomiting. She also has had diarrhea for the past 2-3 days. Today, she woke up and vomited 3 times right away in the morning. Timing/Duration: Getting Worse, Other (2 weeks) Severity/Quality: Other (nausea and vomiting) Location: Generalized Abdomen Radiation: No Radiation Activities at Onset: Other () Modifying Factors: Worsens With Eating, Worsens With Movement Associated Symptoms: No Chest Pain; Diaphoresis; No Fever/Chills, No Fatigue; Nausea/Vomiting; No Shortness of Air (SHANTE CARNES) Allergies and Home Medications Allergies Coded Allergies: Sulfa (Sulfonamide Antibiotics) (Verified Allergy, Unknown, HIVES, 01/04/17) egg (Verified Allergy, Unknown, 10/25/12) Uncoded Allergies: CITRUS (Allergy, Unknown, 10/25/12) Home Medications Hydrocodone/Acetaminophen 15 Ml Solution, 15 ML PO Q4H PRN for PAIN-MODERATE Prescribed by: RYAN OLVERA on 10/11/17 1059 Ibuprofen 100 Mg/5 Ml Oral.susp, 600 MG PO Q6H PRN for PAIN-MILD Prescribed by: RYAN OLVERA on 10/11/17 1059 Patient Home Medication List Home Medication List Reviewed: Yes (KEVIN TEMPLE MD) Home Medication List Reviewed: Yes (SHANTE CARNES) Review of Systems Review of Systems Constitutional: see HPI Respiratory: No Symptoms Reported Cardiovascular: No Symptoms Reported Gastrointestinal: See HPI Genitourinary: Denies Burning, Denies Frequency Musculoskeletal: no symptoms reported (KEVIN TEMPLE MD) Constitutional: No chills; diaphoresis; No dizziness, No fever, No weakness EENTM: No Symptoms Reported Respiratory: Denies Cough, Denies Shortness of Air Cardiovascular: Denies Chest Pain, Denies Lightheadedness, Denies Palpitations Gastrointestinal: Denies Abdomen Distended, Denies Abdominal Pain, Denies Constipated; Diarrhea (past 2-3 days), Nausea (past 2 weeks has worsened over that time), Poor Appetite, Poor Fluid Intake, Vomiting (vomiting 5+ times per day) Genitourinary: Denies Burning, Denies Frequency, Denies Pain Musculoskeletal: no symptoms reported Skin: No pruritus, No rash Psychiatric/Neurological: Denies Headache, Denies Weakness (SHANTE CARNES) Past Srlfzpq-Kiepkb-Seyxxm Hx Past Med/Social Hx: Reviewed Nursing Past Med/Soc Hx (KEVIN TEMPLE MD) Patient Social History Former Smoker, Quit: Oct 08, 2013 Recent Foreign Travel: No Contact w/Someone Who Travel: No Recent Hopitalizations: No (KEVIN TEMPLE MD) Alcohol Use: Denies Use Recreational Drug Use: No Smoking Status: Former Smoker Recent Foreign Travel: No Contact w/Someone Who Travel: No Recent Hopitalizations: No (SHANTE CARNES) Seasonal Allergies Seasonal Allergies: Yes (KEVIN TEMPLE MD) Seasonal Allergies: Yes (SHANTE CARNES) Past Medical History Reproductive Disorders: Yes (CPP, LLQ PAIN, LEFT COMPLEX CYST OVARY) Gastroesophageal Reflux (KEVIN TEMPLE MD) Surgeries: Yes Respiratory: No Cardiac: Yes Heart Murmur Neurological: No : Yes Expected Date of Delivery: Aug 28, 2019 Reproductive Disorders: Yes (CPP, LLQ PAIN, LEFT COMPLEX CYST OVARY) Female Reproductive Disorders: Endometriosis Gastrointestinal: Yes Gastroesophageal Reflux Musculoskeletal: No Endocrine: No Are Your Blood Sugars Over 250: No HEENT: No Cancer: No Psychosocial: No Integumentary: No (SHANTE CARNES STUDENT) Family Medical History Reviewed Nursing Family Hx (KEVIN TEMPLE MD) Reviewed Nursing Family Hx (SHANTE CARNES STUDENT) No Pertinent Family Hx (SHANTE CARNES) Physical Exam Vital Signs Capillary Refill : (KEVIN TEMPLE MD) Height/Weight/BMI Height: 5'4.00" Weight: 135lbs. 0.0oz. 61.048330ff; 23.2 BMI Method:Stated General Appearance: WD/WN, no apparent distress HEENT: PERRL/EOMI, pharynx normal Neck: full range of motion, supple Respiratory: lungs clear, normal breath sounds Cardiovascular: regular rate, rhythm, no JVD Gastrointestinal: non tender, soft Extremities: normal inspection, no pedal edema, no calf tenderness Back: normal inspection, no CVA tenderness, no vertebral tenderness Neurologic/Psychiatric: alert, oriented x 3 Skin: normal color, warm/dry (KEVIN TEMPLE MD) General Appearance: WD/WN, no apparent distress HEENT: PERRL/EOMI, normal ENT inspection, TMs normal, pharynx normal Neck: non-tender, full range of motion, supple, normal inspection Respiratory: chest non-tender, lungs clear, normal breath sounds, no respiratory distress, no accessory muscle use Cardiovascular: regular rate, rhythm, no edema, no gallop, no JVD, systolic murmur Gastrointestinal: normal bowel sounds, non tender, soft, no organomegaly Extremities: normal inspection, no pedal edema, no calf tenderness Back: normal inspection, no CVA tenderness, no vertebral tenderness Neurologic/Psychiatric: alert, normal mood/affect, oriented x 3 Skin: normal color, warm/dry (SHANTE CARNES STUDENT) Progress/Results/Core Measures Results/Orders Lab Results Laboratory Tests Test 01/16/19 16:55 Range/Units White Blood Count 10.7 4.3-11.0 10^3/uL Red Blood Count 4.52 4.35-5.85 10^6/uL Hemoglobin 13.6 11.5-16.0 G/DL Hematocrit 40 35-52 % Mean Corpuscular Volume 89 80-99 FL Mean Corpuscular Hemoglobin 30 25-34 PG Mean Corpuscular Hemoglobin Concent 34 32-36 G/DL Red Cell Distribution Width 14.2 10.0-14.5 % Platelet Count 367 130-400 10^3/uL Mean Platelet Volume 9.0 7.4-10.4 FL Neutrophils (%) (Auto) 63 42-75 % Lymphocytes (%) (Auto) 29 12-44 % Monocytes (%) (Auto) 6 0-12 % Eosinophils (%) (Auto) 1 0-10 % Basophils (%) (Auto) 0 0-10 % Neutrophils # (Auto) 6.7 1.8-7.8 X 10^3 Lymphocytes # (Auto) 3.1 1.0-4.0 X 10^3 Monocytes # (Auto) 0.7 0.0-1.0 X 10^3 Eosinophils # (Auto) 0.2 0.0-0.3 10^3/uL Basophils # (Auto) 0.0 0.0-0.1 10^3/uL Sodium Level 138 135-145 MMOL/L Potassium Level 3.8 3.6-5.0 MMOL/L Chloride Level 104 98-107 MMOL/L Carbon Dioxide Level 23 21-32 MMOL/L Anion Gap 11 5-14 MMOL/L Blood Urea Nitrogen 10 7-18 MG/DL Creatinine 0.79 0.60-1.30 MG/DL Estimat Glomerular Filtration Rate > 60 BUN/Creatinine Ratio 13 Glucose Level 89 70-105 MG/DL Calcium Level 10.3 H 8.5-10.1 MG/DL Corrected Calcium 8.5-10.1 MG/DL Magnesium Level 2.1 1.8-2.4 MG/DL Total Bilirubin 0.6 0.1-1.0 MG/DL Aspartate Amino Transf (AST/SGOT) 14 5-34 U/L Alanine Aminotransferase (ALT/SGPT) 10 0-55 U/L Alkaline Phosphatase 55 40-136 U/L Total Protein 7.7 6.4-8.2 GM/DL Albumin 4.6 H 3.2-4.5 GM/DL (SHANTE CARNES STUDENT) Medications Given in ED Current Medications Medications Dose Ordered Sig/Larry Route Start Time Stop Time Status Last Admin Dose Admin Sodium Chloride 1,000 ml @ 0 mls/hr Q0M ONCE IV 01/16/19 16:53 01/16/19 16:57 DC 01/16/19 17:10 1,000 MLS/HR (SHANTE CARNES STUDENT) Progress Progress Note : Progress Note I have seen and evaluated the patient and agree with above except as indicated. I have directed the plan of care. IV, labs and UA ordered. Normal saline 1 L bolus with Phenergan 25 mg IV. Repeat bolus of D5NS 1 L. Monitor patient. 1835 : Overall improved. I will write prescription for Phenergan by mouth tablets. I discussed the case with Dr. OLVERA and he agrees. Patient is in agreement as well. Discharged home with return precautions. Patient verbalize understanding instructions and agreement with plan. (KEVIN TEMPLE MD) Departure Impression Primary Impression: Hyperemesis gravidarum Disposition: HOME, SELF-CARE Condition: Improved Departure-Patient Inst. Decision time for Depature: 18:37 (KEVIN TEMPLE MD) Referrals: ABAD CÁRDENAS DO (PCP/Family) Primary Care Physician Patient Instructions: Nausea and Vomiting of (DC) Add. Discharge Instructions: All discharge instructions reviewed with patient and/or family. Voiced understanding. Continue to drink plain fluids for taking small sips frequently. Eat a very light and carbohydrate diet. Follow-up with your DrRomel later this week or next week for recheck and further evaluation. Return for persistent nausea and vomiting, abdominal pain, weakness, decreased urination or other concerns as needed. Scripts Promethazine HCl (Promethazine Tablet) 25 Mg Tablet 25 MG PO Q8H PRN for NAUSEA/VOMITING, #20 TAB 0 Refills Prov: KEVIN TEMPLE MD 01/16/19 Copy Copies To 1: RYAN OLVERA TIMOTHY D MD Jan 16, 2019 17:10 SHANTE CARNES STUDENT Jan 16, 2019 17:48
[2019-01-16 17:33] LABS: ALANINE AMINOTRANSFERASE 10 U/L (0-55); ALBUMIN 4.6 GM/DL (3.2-4.5); ALKALINE PHOSPHATASE 55 U/L (40-136); BILIRUBIN,TOTAL 0.6 MG/DL (0.1-1.0); BUN/CREATININE RATIO 13; CALCIUM 10.3 MG/DL (8.5-10.1); CARBON DIOXIDE 23 MMOL/L (21-32); CHLORIDE 104 MMOL/L (98-107); CREATININE SERUM 0.79 MG/DL (0.60-1.30); GFR ESTIMATED > 60; GLUCOSE 89 MG/DL (70-105); MAGNESIUM 2.1 MG/DL (1.8-2.4); POTASSIUM 3.8 MMOL/L (3.6-5.0); SODIUM 138 MMOL/L (135-145); TOTAL PROTEIN 7.7 GM/DL (6.4-8.2)
--- NOTE | 2019-01-16 17:55 | NUR ---
Pt reports nausea has resolved at this time.
[2019-01-16 17:57] LABS: BILIRUBIN,URINE NEGATIVE (NEGATIVE); CLARITY,URINE CLEAR; COLOR,URINE YELLOW; GLUCOSE, URINE (UA) NEGATIVE (NEGATIVE); KETONES,URINE 1+ (NEGATIVE); LEUKOCYTE ESTERASE ,URINE 1+ (NEGATIVE); NITRITE,URINE NEGATIVE (NEGATIVE); PH,URINE 6 (5-9); PROTEIN,URINE 1+ (NEGATIVE); UROBILINOGEN,URINE NORMAL (NORMAL)
[2019-01-16 18:06] LABS: BACTERIA,URINE NEGATIVE /HPF; RBC,URINE 0-2 /HPF; WBC,URINE 0-2 /HPF
[2019-01-16] MEDS ORDERED: PROM25TA14 PO (18:39)
--- NOTE | 2019-01-16 19:00 | NUR ---
Pt reports nausea has returned. Reported symptoms to Dr. Reid. Dr. Reid suggested a phenergan suppository for pt. Pt declined.
[2019-01-16 19:05] VITALS: BP 102/62
== END 2019-01-16 19:05 | disposition home or self-care (01) ==
LOC: EDUNIT# 16:05 → ER 16:10
DX: O21.0 Mild hyperemesis gravidarum (principal); O99.611 Diseases of the digestive system complicating pregnancy, first trimester; K21.9 Gastro-esophageal reflux disease without esophagitis; Z87.448 Personal history of other diseases of urinary system; Z88.2 Allergy status to sulfonamides; Z87.891 Personal history of nicotine dependence; Z3A.08 8 weeks gestation of pregnancy
CPT/HCPCS: 36415; 80053; 81000; 83735; 85025; 96361; 96374

== ENCOUNTER 2019-02-24 15:45 | Outpatient (CLI) | payer BC ==
[~2019-02-24] VITALS: Ht 162.6 cm; Wt 56.7 kg
[~2019-02-24 15:45] MED LIST changes: +PROM25TA14 PO
--- NOTE | 2019-02-24 15:45 | NUR ---
RENE CASTRO presented to unit via AMBULATORY from [facility], accompanied by S/O AND DR. TAPIA WITH HYPEREMESIS. RENE CASTRO oriented to bed controls, call light, TV, heat, and A/C controls.
[2019-02-24] MEDS ORDERED: D5 LR IV SOLUTION 1,000 ML IV ONE (16:05)
[2019-02-24] MEDS: D5 LR IV SOLUTION 1,000 ML IV SCH ×2 (16:05→20:34)
[2019-02-24] MEDS ORDERED: ONDANSETRON 4 MG/2 ML (SDV) Z0FRAN ONE (16:05)
[2019-02-24] MEDS: ONDANSETRON 4 MG/2 ML (SDV) Z0FRAN IVP PRN (16:11)
[2019-02-24] MEDS ORDERED: PROMETHAZINE INJ 25 MG/ML (PHENERGAN) AMP IVP PRN (16:30)
[2019-02-24 16:38] LABS: BASOPHILS # (AUTO) 0.1 10^3/uL (0.0-0.1); BASOPHILS % (AUTO) 0 % (0-10); EOSINOPHILS # (AUTO) 0.1 10^3/uL (0.0-0.3); EOSINOPHILS % (AUTO) 1 % (0-10); HEMATOCRIT 37 % (35-52); HEMOGLOBIN 12.6 G/DL (11.5-16.0); LYMPHOCYTES % (AUTO) 23 % (12-44); MEAN CORPUSCULAR HEMOGLOBIN 30 PG (25-34); MEAN CORPUSCULAR HGB CONC 34 G/DL (32-36); MEAN CORPUSCULAR VOLUME 89 FL (80-99); MEAN PLATELET VOLUME 9.5 FL (7.4-10.4); MONOCYTES # (AUTO) 0.6 X 10^3 (0.0-1.0); MONOCYTES % (AUTO) 5 % (0-12); NEUTROPHILS # (AUTO) 9.4 X 10^3 (1.8-7.8); NEUTROPHILS % (AUTO) 71 % (42-75); PLATELET COUNT 328 10^3/uL (130-400); RED CELL DISTRIBUTION WIDTH 13.9 % (10.0-14.5); WHITE BLOOD COUNT 13.1 10^3/uL (4.3-11.0)
[2019-02-24 16:51] VITALS: BP 94/53
[2019-02-24 16:54] LABS: ALANINE AMINOTRANSFERASE 8 U/L (0-55); ALBUMIN 4.1 GM/DL (3.2-4.5); ALKALINE PHOSPHATASE 57 U/L (40-136); BILIRUBIN,TOTAL 0.5 MG/DL (0.1-1.0); BUN/CREATININE RATIO 9; CALCIUM 9.7 MG/DL (8.5-10.1); CARBON DIOXIDE 19 MMOL/L (21-32); CHLORIDE 106 MMOL/L (98-107); CREATININE SERUM 0.66 MG/DL (0.60-1.30); GFR ESTIMATED > 60; GLUCOSE 86 MG/DL (70-105); POTASSIUM 3.6 MMOL/L (3.6-5.0); SODIUM 137 MMOL/L (135-145); TOTAL PROTEIN 7.2 GM/DL (6.4-8.2)
[2019-02-24] MEDS ORDERED: DOXY1TAB6 PO (18:31)
--- NOTE | 2019-02-24 20:00 | NUR ---
Pt assessment completed, pt resting with family at bedside. pt educated on hyperemesis and POC discussed. Ptasked to let RN when she voids or has emesis. Doppler 150 pt attempting to eat bland food and rest.
[2019-02-24 20:39] VITALS: BP 113/76
--- NOTE | 2019-02-24 22:12 | NUR ---
Pt resting in bed no complaints at this time.
[2019-02-24 23:02] VITALS: BP 101/65
[2019-02-25 03:32] VITALS: BP 95/56
[2019-02-25] MEDS: D5 LR IV SOLUTION 1,000 ML IV SCH ×2 (03:32→11:24)
--- NOTE | 2019-02-25 07:39 | History & Physical-OB ---
OB - Chief Complaint & HPI Date/Time Date of Admission: Date of Admission: Date seen by a Provider: Feb 24, 2019 Time Seen by a Provider: 17:00 Chief Complaint/History OB-Reason for Admission/Chief: Hx : 1 Hx Para: 0 Expected Date of Delivery: Aug 28, 2019 Gestational Age in Weeks: 13 Gestational Age in Days: 4 Other reason for admission: Patient direct admit from the office due to 4-5 day history of vomiting and unable to hold down any food. She hadnt been able to hold down any water yesterday so she was admitted. General lethargy and overall weakness described by the patient as well. She had been on Phenergan and tried Bonjesta without any relief. Admission Nurse Assessment Rev: Yes Allergies and Home Medications Allergies Coded Allergies: Sulfa (Sulfonamide Antibiotics) (Verified Allergy, Unknown, HIVES, 01/04/17) egg (Verified Allergy, Unknown, 10/25/12) milk (Verified Allergy, Unknown, 02/24/19) Uncoded Allergies: CITRUS (Allergy, Unknown, 10/25/12) Home Medications Doxylamine Succinate/Vit B6 1 Each Tab.ir.dr, 1 EACH PO HS, (Reported) Promethazine HCl 25 Mg Tablet, 25 MG PO Q8H PRN for NAUSEA/VOMITING Prescribed by: KEVIN TEMPLE on 01/16/19 4267 Patient Home Medication List Home Medication List Reviewed: Yes OB - History Hx of Present Care: Yes Ultrasounds: Other Obstetrical Complications: Hyperemesis Medical Complications: None Obstetrical History Hx : 1 Hx Para: 0 Hx Total # of Abortions (Spona: 0 Delivery History Hx Blood Disorders: No Patient Past Medical History n/a Social History/Family History Recent Infectious Disease Expo: No 2nd Hand Smoke Exposure: No OB - Admission Exam Physical Exam Vitals: Vital Signs 02/24/19 02/25/19 23:02 03:32 Temp 98.2 Pulse 81 Resp 18 B/P (MAP) 95/56 (69) Pulse Ox 96 O2 Delivery Room Air HEENT: NCAT Heart: Rhythm Normal Lungs: Clear Heart Rate: 130's Contractions on Admission: None Labs Laboratory Tests Test 02/24/19 16:05 Range/Units White Blood Count 13.1 H 4.3-11.0 10^3/uL Red Blood Count 4.22 L 4.35-5.85 10^6/uL Hemoglobin 12.6 11.5-16.0 G/DL Hematocrit 37 35-52 % Mean Corpuscular Volume 89 80-99 FL Mean Corpuscular Hemoglobin 30 25-34 PG Mean Corpuscular Hemoglobin Concent 34 32-36 G/DL Red Cell Distribution Width 13.9 10.0-14.5 % Platelet Count 328 130-400 10^3/uL Mean Platelet Volume 9.5 7.4-10.4 FL Neutrophils (%) (Auto) 71 42-75 % Lymphocytes (%) (Auto) 23 12-44 % Monocytes (%) (Auto) 5 0-12 % Eosinophils (%) (Auto) 1 0-10 % Basophils (%) (Auto) 0 0-10 % Neutrophils # (Auto) 9.4 H 1.8-7.8 X 10^3 Lymphocytes # (Auto) 3.0 1.0-4.0 X 10^3 Monocytes # (Auto) 0.6 0.0-1.0 X 10^3 Eosinophils # (Auto) 0.1 0.0-0.3 10^3/uL Basophils # (Auto) 0.1 0.0-0.1 10^3/uL Sodium Level 137 135-145 MMOL/L Potassium Level 3.6 3.6-5.0 MMOL/L Chloride Level 106 98-107 MMOL/L Carbon Dioxide Level 19 L 21-32 MMOL/L Anion Gap 12 5-14 MMOL/L Blood Urea Nitrogen 6 L 7-18 MG/DL Creatinine 0.66 0.60-1.30 MG/DL Estimat Glomerular Filtration Rate > 60 BUN/Creatinine Ratio 9 Glucose Level 86 70-105 MG/DL Calcium Level 9.7 8.5-10.1 MG/DL Corrected Calcium 9.6 8.5-10.1 MG/DL Total Bilirubin 0.5 0.1-1.0 MG/DL Aspartate Amino Transf (AST/SGOT) 13 5-34 U/L Alanine Aminotransferase (ALT/SGPT) 8 0-55 U/L Alkaline Phosphatase 57 40-136 U/L Total Protein 7.2 6.4-8.2 GM/DL Albumin 4.1 3.2-4.5 GM/DL OB - Assessment/Plan/Diagnosis Assessment Assessment: other Admission Dx 33 yo @ 13 weeks Hyperemesis Gravidarum Dehydration Lethargy and weakness Admission Status: Observation Reason for Inpatient Admission: 13 week IUP HEG Plan Other Plan IVF hydration and antiemetics will progress diet as tolerated and hopefully dc patient later this morning RYAN TAPIA DO Feb 25, 2019 07:39
[2019-02-25 07:50] VITALS: BP 110/56
[2019-02-25] MEDS: ONDANSETRON 4 MG/2 ML (SDV) Z0FRAN IVP PRN ×3 (07:58→16:33)
--- NOTE | 2019-02-25 07:58 | NUR ---
PT IN BED. VS OBTAINED. INITIAL SHIFT ASSESSMENT COMPLETED; SEE INTERVENTION. PT C/O BEING NAUSEOUS, ZOFRAN OFFERED, PT ACCEPTS. THIS RN BACK TO PT'S BEDSIDE, PT SITTING UP ON THE SIDE OF THE BED, VOMITING. ZOFRAN GIVEN IVP; SEE EMAR FOR FURTHER. PT UP TO THE BATHROOM, NO FURTHER NEEDS VOICED. S/O AT THE BEDSIDE.
--- NOTE | 2019-02-25 08:15 | NUR ---
DR. TAPIA TO PT'S BEDSIDE.
[2019-02-25] MEDS ORDERED: CATHETER FLUSH 10 ML SYR IV PRN (08:30)
[2019-02-25] MEDS ORDERED: METOCLOPRAMIDE INJ 10 MG/2 ML (REGLAN) IVP NR (08:30)
--- NOTE | 2019-02-25 08:43 | NUR ---
NEW MEDS WERE ORDERED PER DR. TAPIA, ALL GIVEN IVP; SEE EMAR FOR FURTHER. PT REQUESTING TO TAKE A SHOWER. SHOWER SET UP. IV SALINE LOCKED AND COVERED. PT DENIES ANY FURTHER NEEDS. S/O REMAINS AT THE BEDSIDE.
[2019-02-25] MEDS ORDERED: FAMOTIDINE 20MG/2ML IV (PEPCID) IVP SCH (09:00)
--- NOTE | 2019-02-25 11:24 | NUR ---
THIS RN TO ROUND ON PT, PT VOICES THAT SHE JUST WOKE UP. LIGHTS REMAIN OUT. IV BAG ALMOST EMPTY, NEW BAG HUNG AND INFUSING @ 125 ML/HR/PUMP. PT DENIES ANY NEEDS AT THIS TIME. PT STATES THAT SHE ATE SOME CHEERIOS AND HAS KEPT THEM DOWN, UNINTERESTED IN THE [place]ORE[place] MUFFIN THAT SHE ORDERED.
[2019-02-25] MEDS ORDERED: METOCLOPRAMIDE INJ 10 MG/2 ML (REGLAN) IVP SCH (12:00)
[2019-02-25 12:25] VITALS: BP 103/65
--- NOTE | 2019-02-25 12:25 | NUR ---
PT IN BED, FAMILY AT THE BEDSIDE. VS OBTAINED. ZOFRAN GIVEN IVP; SEE EMAR FOR FURTHER. NO NEEDS VOICED.
--- NOTE | 2019-02-25 14:48 | NUR ---
PT IN BED, WATCHING TV. REGLAN GIVEN IVP; SEE EMAR FOR FURTHER. PT VOICES THAT SHE'S BEEN ABLE TO KEEP THE FEW BITES OF HER SOUP BROTH DOWN, DENIES CURRENTLY FEELING NAUSEOUS.
--- NOTE | 2019-02-25 15:12 | NUR ---
DR. TAPIA NOTIFIED OF PT'S CURRENT STATUS. ORDERS RECEIVED FOR DISCHARGE HOME AND ZOFRAN RX.
[2019-02-25] MEDS ORDERED: ONDA4TAB11 PO (15:20)
--- NOTE | 2019-02-25 15:30 | NUR ---
PT INFORMED OF DISCHARGE ORDER, PT VERBALIZES UNDERSTANDING. S/O AT THE BEDSIDE. AWAITING IV FLUIDS TO COMPLETE PRIOR TO DISMISSAL.
--- NOTE | 2019-02-25 15:50 | NUR ---
DISCHARGE PAPERS PROVIDED AND REVIEWED WITH PT, PT VERBALIZES UNDERSTANDING AND DENIES ANY QUESTIONS AT THIS TIME. PAPER SIGNED.
--- NOTE | 2019-02-25 16:00 | NUR ---
RX CALLED INTO [facility].
--- NOTE | 2019-02-25 16:40 | NUR ---
PT DISCHARGED FROM [facility] TO [facility]ATORY IN STABLE CONDITION ACC BY S/O.
== END 2019-02-25 16:40 | disposition home or self-care (01) ==
LOC: WSo 15:45 → LDRP 15:45 → WS 18:24 → WSo 02-25 16:40
PROVIDERS: ATTEND Obstetrics & Gynecology
DX: O21.1 Hyperemesis gravidarum with metabolic disturbance (principal); R53.83 Other fatigue; R53.1 Weakness; Z3A.13 13 weeks gestation of pregnancy
CPT/HCPCS: 36415; 80053; 85025; 96361; 96374; 96375; 96376; 99213

== ENCOUNTER 2019-03-21 10:29 | Outpatient (CLI) | payer BC ==
[~2019-03-21] VITALS: Ht 162.6 cm; Wt 55.6 kg
[~2019-03-21 10:29] MED LIST changes: +DOXY1TAB6 PO; +ONDA4TAB11 PO
[2019-03-21 10:45] VITALS: BP 104/55
--- NOTE | 2019-03-21 10:45 | NUR ---
RENE CASTRO presented to unit ambulatory, accompanied by spouse with c/o HYPEREMESIS. RENE CASTRO weighed, gowned, voided, and to bed. VS taken. RENE CASTRO oriented to bed controls, call light, TV, heat, and A/C controls.
[2019-03-21] MEDS ORDERED: ONDANSETRON 4 MG/2 ML (SDV) Z0FRAN IVP PRN (11:00)
--- NOTE | 2019-03-21 11:00 | NUR ---
Vomited x 1 approximately 50 ml of green emesis upon admission. Recent visits to ER for hydration for hyperemesis prior to this admission.
[2019-03-21] MEDS ORDERED: D5 LR IV SOLUTION 1,000 ML IV ONE (11:08)
[2019-03-21] MEDS ORDERED: METOCLOPRAMIDE INJ 10 MG/2 ML (REGLAN) IVP ONE (11:15)
[2019-03-21 11:23] LABS: BASOPHILS % (AUTO) 0 % (0-10); EOSINOPHILS % (AUTO) 0 % (0-10); HEMATOCRIT 37 % (35-52); HEMOGLOBIN 12.4 G/DL (11.5-16.0); LYMPHOCYTES # (AUTO) 1.5 X 10^3 (1.0-4.0); LYMPHOCYTES % (AUTO) 14 % (12-44); MEAN CORPUSCULAR HEMOGLOBIN 30 PG (25-34); MEAN CORPUSCULAR HGB CONC 34 G/DL (32-36); MEAN CORPUSCULAR VOLUME 90 FL (80-99); MEAN PLATELET VOLUME 9.3 FL (7.4-10.4); MONOCYTES # (AUTO) 0.5 X 10^3 (0.0-1.0); MONOCYTES % (AUTO) 5 % (0-12); NEUTROPHILS # (AUTO) 8.9 X 10^3 (1.8-7.8); NEUTROPHILS % (AUTO) 81 % (42-75); PLATELET COUNT 323 10^3/uL (130-400); WHITE BLOOD COUNT 10.9 10^3/uL (4.3-11.0)
[2019-03-21] MEDS: D5 LR IV SOLUTION 1,000 ML IV SCH ×2 (11:42→15:15)
[2019-03-21 11:49] LABS: ALANINE AMINOTRANSFERASE 11 U/L (0-55); ALBUMIN 4.1 GM/DL (3.2-4.5); ALKALINE PHOSPHATASE 64 U/L (40-136); BILIRUBIN,TOTAL 0.4 MG/DL (0.1-1.0); BUN/CREATININE RATIO 14; CALCIUM 9.8 MG/DL (8.5-10.1); CARBON DIOXIDE 17 MMOL/L (21-32); CHLORIDE 104 MMOL/L (98-107); CREATININE SERUM 0.65 MG/DL (0.60-1.30); GFR ESTIMATED > 60; GLUCOSE 85 MG/DL (70-105); POTASSIUM 3.7 MMOL/L (3.6-5.0); SODIUM 137 MMOL/L (135-145); TOTAL PROTEIN 7.4 GM/DL (6.4-8.2)
--- NOTE | 2019-03-21 13:00 | NUR ---
Sleeping. 1325 Dr Olvera called to inquire about pt status. Informed of her resting. When she awakens she is to try crackers and Spirit and then to notify him of results for possible discharge.
--- NOTE | 2019-03-21 15:00 | NUR ---
RESTING IN BED QUIETLY. STATES SHE FEELS LIKE THE ONE BAG HAS PERKED HER UP. CRACKERS GIVEN. FAMILY AT BEDSIDE. DENIES FURTHER NEED AT THIS TIME.
--- NOTE | 2019-03-21 15:15 | NUR ---
IV FLUIDS HUNG ORDERED.
--- NOTE | 2019-03-21 17:30 | NUR ---
SITTING UP IN BED SMILING AND TALKING WITH FAMILY. REPORTS NO NAUSEA AND CRACKERS HAVE STAYED DOWN. REQUEST UPDATE TO FOR FURTHER CARE.
--- NOTE | 2019-03-21 17:45 | NUR ---
DR TAPIA NOTIFIED OF PATIENT STATUS ORDER TO D/C RECEIVED .
--- NOTE | 2019-03-25 15:42 | Clinic Account Progress/Dx ---
Clinic Account Progress/Dx DIAGNOSIS: Date Seen by Provider: Mar 21, 2019 Time Seen by Provider: 17:00 16 week IUP Intractable nausea and vomitting dehydration Constipation DESEAN MILLS Mar 25, 2019 15:42 RYAN TAPIA DO March 26, 2019 07:00
== END 2019-03-21 18:05 | disposition home or self-care (01) ==
LOC: LDRP 10:29 → WSo 10:29
PROVIDERS: ATTEND Obstetrics & Gynecology
DX: O21.9 Vomiting of pregnancy, unspecified (principal); O99.282 Endocrine, nutritional and metabolic diseases complicating pregnancy, second trimester; E86.0 Dehydration; O99.612 Diseases of the digestive system complicating pregnancy, second trimester; K59.00 Constipation, unspecified; Z3A.16 16 weeks gestation of pregnancy
CPT/HCPCS: 36415; 80053; 85025; 96361; 96374; 96375; 99213

== ENCOUNTER 2019-04-16 21:44 | Observation (INO) | payer BC | END 2019-04-19 16:05 | disposition designated cancer center or children's hospital (05) | LOC: WSo 21:44 → LDRP 04-17 18:45 → WSo 04-18 07:00 → LDRP 21:44 ==

== ENCOUNTER → 2019-04-16 | Outpatient (CLI) | payer BC ==
[~2019-04-16] MED LIST changes: +METO5TAB75 PO
--- NOTE | 2019-04-16 15:55 | Diagnostic Imaging Report ---
INDICATION: survey. TECHNIQUE: Multiple real-time grayscale images were obtained over the gravid uterus. COMPARISON: None FINDINGS: There is a single live fetus in a cephalic presentation. heart rate was recorded 132 beats per minute. Placenta is anterior. Amniotic fluid volume is normal. survey demonstrates kidneys, bladder, and stomach to be unremarkable. The brain is unremarkable. There is a four-chambered heart. There is a three-vessel cord with normal insertion. spine is limited in evaluation today due to position. Biometrical measurements are as follows: Biparietal 5.48 cm, age 22 weeks 5 days. Head circumference 19.36 cm, age 21 weeks 5 days. Abdominal circumference 15.53 cm, age 20 weeks 5 days. Femur length 3.40 cm, age 20 weeks 5 days. Sonographic estimate age: 21 weeks 4 days. Sonographic estimated date of delivery: 08/23/2019. Estimated Weight: 382 gm (+/- 56 gm). LMP percentile: 44%. heart rate: 132 beats per minute. number: 1 of 1. IMPRESSION: Single live IUP with 21 weeks 4 days gestational age with estimated date of confinement sonographically of 08/23/2019. survey is unremarkable, although spine is somewhat limited due to position. Followup could be performed. Dictated by: Dictated on workstation # [id number]
== END ==
LOC: RAD 14:42
PROVIDERS: ATTEND Obstetrics & Gynecology
DX: Z36.89 Encounter for other specified antenatal screening (principal); Z3A.21 21 weeks gestation of pregnancy
CPT/HCPCS: 76805

== ENCOUNTER 2019-08-28 10:00 | Inpatient (IN) | payer BC ==
[~2019-08-28] VITALS: Ht 162.6 cm; Wt 68.5 kg
[2019-08-28] VITALS (44 sets, daily range): BP systolic 115–143; BP diastolic 62–83
--- NOTE | 2019-08-28 10:35 | NUR ---
RENE CASTRO presented to unit via [facility], accompanied by DR JOY, , AND SISTER , with c/o DECREASED HEART TONES IN THE OFFICE. RENE CASTRO to bed. EFHM and TOCO applied, VS taken. RENE CASTRO oriented to bed controls, call light, TV, heat, and A/C controls.
--- NOTE | 2019-08-28 10:35 | NUR ---
PT ARRIVED ON LD WITH DR TAPIA, , & SISTER. PT IS TEARFUL. DR TAPIA SENT PT UP TO BE DELIVERED FOR NON-REASSURING HEART TONES IN THE OFFICE. DR TAPIA STATES FHT HAVING VARIABLES IN THE OFFICE. PT IS WALKED TO ROOM 317, PLACED IMMEDIATELY IN BED, PLACED ON EFM, & O2 GIVEN VIA NONREBREATHER MASK. DR TAPIA AT BEDSIDE, REVIEWS FHT STRIP AND CONCLUDES THAT BABY HAS A LOW BASELINE OF ABOUT 100-115 BPM WITH ACCELERATIONS, PT KAROL OCCASIONALLY. PLAN OF CARE IS DISCUSSED WITH PT/FAMILY AND THIS RN BY DR BUSH AT BEDSIDE. PT WILL BE ADMITTED AND WILL MONITOR AT THIS TIME. DR TAPIA STATES THE PT WILL BE DELIVERED ONE WAY OR ANOTHER. THIS RN WILL WAIT FOR MORE ORDERS BY
[2019-08-28] MEDS ORDERED: D5 LR IV SOLUTION 1,000 ML IV SCH (11:02)
[2019-08-28 11:08] LABS: BASOPHILS % (AUTO) 0 % (0-10); EOSINOPHILS # (AUTO) 0.1 10^3/uL (0.0-0.3); EOSINOPHILS % (AUTO) 1 % (0-10); HEMATOCRIT 32 % (35-52); HEMOGLOBIN 10.2 G/DL (11.5-16.0); LYMPHOCYTES # (AUTO) 2.5 X 10^3 (1.0-4.0); LYMPHOCYTES % (AUTO) 24 % (12-44); MEAN CORPUSCULAR HEMOGLOBIN 28 PG (25-34); MEAN CORPUSCULAR HGB CONC 32 G/DL (32-36); MEAN CORPUSCULAR VOLUME 85 FL (80-99); MEAN PLATELET VOLUME 9.7 FL (7.4-10.4); MONOCYTES # (AUTO) 0.7 X 10^3 (0.0-1.0); MONOCYTES % (AUTO) 7 % (0-12); NEUTROPHILS # (AUTO) 7.2 X 10^3 (1.8-7.8); NEUTROPHILS % (AUTO) 68 % (42-75); PLATELET COUNT 399 10^3/uL (130-400); WHITE BLOOD COUNT 10.5 10^3/uL (4.3-11.0)
[2019-08-28] MEDS ORDERED: MINERAL OIL CONCENTRATE 99.9% 15 ML UDC TOP PRN (11:15)
--- NOTE | 2019-08-28 11:58 | NUR ---
anesthesia called for epidural placement
[2019-08-28] MEDS ORDERED: SUFENTA 0.6MCG/ML BUPIVA 0.125 100 ML ONE (12:18)
[2019-08-28] MEDS ORDERED: ONDANSETRON 4 MG/2 ML (SDV) Z0FRAN ONE (12:24)
[2019-08-28] MEDS ORDERED: ONDANSETRON 4 MG/2 ML (SDV) Z0FRAN IVP PRN (12:30)
[2019-08-28] MEDS ORDERED: fentaNYL INJECTION 100 MCG/2 ML AMP ONE (12:42)
[2019-08-28] MEDS ORDERED: BUPIVACAINE 0.25% 30 ML (SENSORCAINE) VIAL ONE (12:42)
[2019-08-28] MEDS ORDERED: LIDOCAINE PF 2% 5 ML (XYLOCAINE) VIAL ONE (12:42)
--- NOTE | 2019-08-28 12:42 | History & Physical-OB ---
OB - Chief Complaint & HPI Date/Time Date of Admission: Date of Admission: Aug 28, 2019 at 10:00 am Date seen by a Provider: Aug 28, 2019 Time Seen by a Provider: 10:30 Chief Complaint/History OB-Reason for Admission/Chief: Hx : 1 Hx Para: 0 Expected Date of Delivery: Aug 28, 2019 Gestational Age in Weeks: 40 Gestational Age in Days: 0 Other reason for admission: Patient sent up for delivery due to non-reassuring heart tracing in the office. Admission Nurse Assessment Rev: Yes History of Labs O pos Antibody neg RI RPR NR HBsAg NR HIV NR GC neg GBS neg Allergies and Home Medications Allergies Coded Allergies: Sulfa (Sulfonamide Antibiotics) (Verified Allergy, Unknown, HIVES, 01/04/17) egg (Verified Allergy, Unknown, 10/25/12) milk (Verified Allergy, Unknown, 02/24/19) Uncoded Allergies: CITRUS (Allergy, Unknown, 10/25/12) Home Medications Metoclopramide HCl 5 Mg Tablet, 5 MG PO DAILY PRN, (Reported) Ondansetron 4 Mg Tab.rapdis, 4 MG PO Q4H PRN for NAUSEA/VOMITING-1ST LINE Prescribed by: JG ESCOTO on 02/25/19 1520 Patient Home Medication List Home Medication List Reviewed: Yes OB - History Hx of Present Care: Yes Ultrasounds: Normal mid trimester US Obstetrical Complications: Hyperemesis Medical Complications: None Obstetrical History Hx Multiple Gestation: No Delivery History Hx Blood Disorders: No Adverse Rxn to Tranfusion: No Patient Past Medical History endometriosis n/a Social History/Family History HIV/AIDS: No Recent Infectious Disease Expo: No Sexually Transmitted Disease: No Alcohol Use: Denies Use Recreational Drug Use: No 2nd Hand Smoke Exposure: No Immunizations Hepatitis A: No Hepatitis B: Yes Tetanus Booster (TDap): Unknown OB - Admission Exam Physical Exam HEENT: NCAT Heart: Rhythm Normal Lungs: Clear Abdomen: Gravid Extremities: Normal Reflexes: Normal Cervical Dilatation: 4cm Effacement: 75% Station: -1 Membranes: Intact Amniotic Fluid: Clear Heart Rate: 120's (110s to 100s) Accelerations: Accelerations Present Decelerations: No Decelerations Short Term Variability: Present Travel Accommodations Rater Variability: Average (6-25) Contractions on Admission: 6-10 Minutes Apart Intensity: Moderate Labs Laboratory Tests Test 08/28/19 11:00 Range/Units White Blood Count 10.5 4.3-11.0 10^3/uL Red Blood Count 3.71 L 4.35-5.85 10^6/uL Hemoglobin 10.2 L 11.5-16.0 G/DL Hematocrit 32 L 35-52 % Mean Corpuscular Volume 85 80-99 FL Mean Corpuscular Hemoglobin 28 25-34 PG Mean Corpuscular Hemoglobin Concent 32 32-36 G/DL Red Cell Distribution Width 15.0 H 10.0-14.5 % Platelet Count 399 130-400 10^3/uL Mean Platelet Volume 9.7 7.4-10.4 FL Neutrophils (%) (Auto) 68 42-75 % Lymphocytes (%) (Auto) 24 12-44 % Monocytes (%) (Auto) 7 0-12 % Eosinophils (%) (Auto) 1 0-10 % Basophils (%) (Auto) 0 0-10 % Neutrophils # (Auto) 7.2 1.8-7.8 X 10^3 Lymphocytes # (Auto) 2.5 1.0-4.0 X 10^3 Monocytes # (Auto) 0.7 0.0-1.0 X 10^3 Eosinophils # (Auto) 0.1 0.0-0.3 10^3/uL Basophils # (Auto) 0.0 0.0-0.1 10^3/uL OB - Assessment/Plan/Diagnosis Assessment Assessment: induction of labor Admission Dx 34 yo @ 40weeks Post dates Non- reassuring FHR tracing GBS neg Admission Status: Inpatient Order (span 2 midnights) Reason for Inpatient Admission: Induction of labor at term Plan Plan: Induction Induction Method: AROM Other Plan IV started STAT with O2 and nonrebreather mask. FSE placed shortly after FENDOMINICRYAN Westfall DO Aug 28, 2019 12:42 pm
[2019-08-28] MEDS: EPIDURAL (SUFENTA 0.6MCG/ML BUPIVA 0.125%) 100 ML BAG EPI PRN ×2 (13:01→18:00)
[2019-08-28] MEDS ORDERED: OXYTOCIN/NORMAL SALINE 500 ML IV SCH ×2 (13:21→20:14)
[2019-08-28] MEDS ORDERED: CATHETER FLUSH 10 ML SYR IV SCH ×2 (14:00→22:00)
[2019-08-28] MEDS ORDERED: LACTATED RINGERS 1,000 ML IV ONE ×2 (14:07)
[2019-08-28] MEDS ORDERED: ONDANSETRON 4 MG/2 ML (SDV) Z0FRAN IV PRN (14:15)
[2019-08-28] MEDS ORDERED: NALOXONE 0.4 MG/ML 1 ML (NARCAN) VIAL IV PRN (14:15)
--- NOTE | 2019-08-28 16:20 | NUR ---
DR TAPIA AT BEDSIDE. THIS RN GIVES UPDATED PT REPORT. NO NEW ORDERS. FHT STRIP REVIEWED AND OKAYED BY DR TAPIA.
--- NOTE | 2019-08-28 18:15 | NUR ---
dr stein at bedside. plans to check sve after he is finished with another delivery in approx 1 hr.
[2019-08-28] MEDS ORDERED: LIDOCAINE/EPI 2% 1:200,00 (XYLOCAINE) 10 ML VIAL INJ ONE (19:00)
--- NOTE | 2019-08-28 19:00 | NUR ---
report given to sergio wills
[2019-08-28] MEDS ORDERED: LIDOCAINE/EPI 2% 1:200,00 (XYLOCAINE) 10 ML VIAL ONE (19:12)
[2019-08-28] MEDS ORDERED: IBUPROFEN 600 MG (MOTRIN) TAB PO ONE (20:15)
[2019-08-28] MEDS ORDERED: WITCH HAZEL(TUCKS) 40 EA JAR TOP PRN (20:15)
[2019-08-28] MEDS ORDERED: DIBUCAINE (NUPERCAINAL) 1% OINT 30 GM TOP PRN (20:15)
[2019-08-28] MEDS ORDERED: WITCH HAZEL(TUCKS) 40 EA JAR ONE (20:15)
[2019-08-28] MEDS ORDERED: TETANUS,DIPTH,PERTUSS P/F (BOOSTRIX) 0.5 ML VIAL IM ONE (20:15)
[2019-08-28] MEDS ORDERED: MEASLES,MUMPS,RUBELLA 1 EA INJ SQ ONE (20:15)
[2019-08-28] MEDS ORDERED: BENZOCAINE/MENTHOL (DERMOPLAST) 56 ML CAN TP PRN (20:15)
[2019-08-28] MEDS ORDERED: BENZOCAINE/MENTHOL (DERMOPLAST) 56 ML CAN TP ONE (20:15)
--- NOTE | 2019-08-28 20:24 | OB Labor & Delivery Record ---
L&D History Date of Service Date of Service: Aug 28, 2019 History Expected Date of Delivery: Aug 28, 2019 Gestational Age in Weeks: 40 Hx : 1 Hx Para: 0 Complications Events: Routine care Operative Indications (Cesarea: N/A-Vaginal Delivery Intrapartal Events: None L&D Stage1 Stage One Onset of Labor - Date: Aug 28, 2019 Monitors and Tracing Monitor Mode: Internal Heart Rate: 115 Station: -1 Molder Apprentice Variability: Average (6-10) Short Term Variability: Present Presentation: Vertex Vital Signs VS - Last 72 Hours, by Label 08/28/19 08/28/19 08/28/19 08/28/19 11:00 11:20 12:00 12:30 Temp 36.5 Pulse 69 75 78 Resp 16 B/P (MAP) 123/68 (86) 140/81 (100) 143/83 (103) O2 Delivery Non Rebreather Non Rebreather Room Air Room Air O2 Flow Rate 10.00 10.00 08/28/19 08/28/19 08/28/19 08/28/19 12:45 13:00 13:15 13:30 Pulse 82 63 60 60 Resp 20 B/P (MAP) 141/79 (99) 140/69 (92) 133/63 (86) 128/78 (95) O2 Delivery Room Air Room Air Room Air Room Air 08/28/19 08/28/19 08/28/19 08/28/19 13:45 14:00 14:15 14:30 Temp 36.4 Pulse 68 62 68 70 Resp 16 B/P (MAP) 130/64 (86) 121/72 (88) 128/66 (86) 122/67 (85) O2 Delivery Room Air Room Air Room Air Room Air 08/28/19 08/28/19 08/28/19 08/28/19 14:45 15:00 15:15 15:30 Pulse 67 66 72 77 B/P (MAP) 116/74 (88) 117/66 (83) 118/69 (85) 122/72 (89) O2 Delivery Room Air Room Air Room Air Room Air 08/28/19 08/28/19 08/28/19 08/28/19 15:45 16:00 16:15 16:30 Temp 36.7 Pulse 61 66 70 67 Resp 16 B/P (MAP) 115/73 (87) 125/74 (91) 129/71 (90) 143/72 (95) O2 Delivery Room Air Room Air Room Air Room Air 08/28/19 16:45 Pulse 69 B/P (MAP) 130/73 (92) O2 Delivery Room Air Rupture of Membranes Spontaneous Ruture of Membrane: No Amniotic Membrane Rupture Time: 1142 Amniotic Membrane Fluid Desc.: Clear Vaginal Bleeding Description: Normal Show Induction/Anesthesia Epidural Cath Placement - Time: 1251 Progress/Notes Pitocin augmentation used after epidural placed and the patient progressed to complete and +2 station L&D Stage2 Stage Two Stage II Date: Aug 28, 2019 Monitors and Tracing Monitor Mode: Internal Heart Rate: 115 Monitor Accelerations: Uniform Monitor Decelerations: Variable Molder Apprentice Variability: Average (6-10) Short Term Variability: Present Position: Right Occiput Anterior Presentation: Vertex Cord Descript/Complications Cord Vessel Description: 3 Vessels Delivery Type Infant Delivery Method: Spontaneous Vaginal Anterior Shoulder: Right Episiotomy/Perineal Laceration Laceraction(s)/Extensions: Yes Episiotomy Description: Right Mediolateral Degree (describe repair) RML repaired using 3-0 and 2-0 vicryl suture in usual fashion Condition of Delivery 1 minute Comment: 8 5 minute Comment: 9 Notes Live male infant weight pending, infant staying skin to skin with mother Condition of Condition of : Living Exam: No Observed Abnormalities Resuscitation Resuscitation: N/A - Spontaneous Resp L&D Stage3 Stage Three Stage III Date: Aug 28, 2019 Pictocin Pitocin Administration mu/min: 6 Pitocin ml/hr: 6 Pitocin Administration Comment: 30 mu wide open at delivery of placenta Placenta Delivery Placenta Delivery: Spontaneous Delivery Summary Summary Estimated blood loss (mL): 350 Attending at delivery: Ryan Tapia DO Condition of Delivery Examined: Cervix Examined, Uterus Explored Post Hemorrhage: No Condition of Mother stable Condition of (s) stable RYAN TAPIA DO Aug 28, 2019 8:24 pm
--- NOTE | 2019-08-28 21:25 | NUR ---
Epidural cath removed, tip in tact, site wnl, pt reports soreness, site left o/a. Ambulatory standby to bathroom, pericare pads changed, pt unable to void at this time. to wc standby and tx to pp unit room 310 as this rn remains pt rn. will cont to monitor.
[2019-08-28] MEDS: IBUPROFEN 600 MG (MOTRIN) TAB PO SCH (21:30)
[2019-08-29 00:33] VITALS: BP 107/64
[2019-08-29 03:25] VITALS: BP 113/67
[2019-08-29] MEDS: IBUPROFEN 600 MG (MOTRIN) TAB PO SCH ×4 (03:27→21:59)
[2019-08-29 06:31] LABS: BASOPHILS % (AUTO) 0 % (0-10); EOSINOPHILS % (AUTO) 0 % (0-10); HEMATOCRIT 21 % (35-52); LYMPHOCYTES # (AUTO) 2.3 X 10^3 (1.0-4.0); LYMPHOCYTES % (AUTO) 13 % (12-44); MEAN CORPUSCULAR HEMOGLOBIN 28 PG (25-34); MEAN CORPUSCULAR HGB CONC 32 G/DL (32-36); MEAN CORPUSCULAR VOLUME 87 FL (80-99); MEAN PLATELET VOLUME 9.6 FL (7.4-10.4); MONOCYTES # (AUTO) 0.9 X 10^3 (0.0-1.0); MONOCYTES % (AUTO) 5 % (0-12); NEUTROPHILS # (AUTO) 15.1 X 10^3 (1.8-7.8); NEUTROPHILS % (AUTO) 82 % (42-75); PLATELET COUNT 303 10^3/uL (130-400); WHITE BLOOD COUNT 18.3 10^3/uL (4.3-11.0)
[2019-08-29] MEDS: HYDROcodone/APAP 5 MG/325 MG (LORTAB) TAB PO PRN ×4 (06:38→19:15)
--- NOTE | 2019-08-29 08:00 | NUR ---
CARING FOR INFANT IN ROOM. GOOD INTERACTION NOTED.
--- NOTE | 2019-08-29 08:53 | Anesthesia-Regional Post-Op ---
Regional Patient Condition Mental Status: Alert, Oriented x3 Circulation: Same as Pre-Op Headache: Absent Sensation: Full Recovery Motor Block: Absent Post Op Complications Complications None Follow Up Care/Instructions Patient Instructions None needed. Anesthesia/Patient Condition Patient is doing well, no complaints, stable vital signs, no apparent adverse anesthesia problems. No complications reported per nursing. JIMMY KRAUSE CRNA Aug 29, 2019 08:53
[2019-08-29 09:00] VITALS: BP 124/63
--- NOTE | 2019-08-29 09:30 | NUR ---
A.M. ASSESSMENT COMPLETED. VSS. ICE TO PERINEUM.
[2019-08-29] MEDS: FERROUS SULF 325 MG (IRON) TAB PO SCH (10:13)
[2019-08-29] MEDS: DOCUSATE SODIUM 100 MG (COLACE) CAP PO SCH ×2 (10:14→22:00)
--- NOTE | 2019-08-29 10:30 | NUR ---
LORTAB 5/325 1 P.O. FOR C/O PERINEAL PAIN.
[2019-08-29] MEDS ORDERED: TETANUS,DIPTH,PERTUSS P/F (BOOSTRIX) 0.5 ML VIAL IM ONE (10:34)
--- NOTE | 2019-08-29 10:41 | Postpartum Progress Note ---
Note Note Day # 1 Subjective: Patient is without complaints. Ambulating, voiding. Tolerating a regular diet without nausea or vomiting. Normal lochia. Pain is well controlled with oral pain medications. Objective: Physical Exam: General - Alert and oriented, no apparent distress Abdomen - Soft, appropriately tender to palpation, non-distended, fundus firm at umbilicus Extremities - no edema, negative Lissa's bilaterally Assessment: PPD 1 NVD Acute blood loss anemia Plan: Routine care. Encourage breast feeding. Encourage ambulation. Ferrous sulfate supplementation. Plan for discharge tomorrow Vitals - Labs Vital Signs - I&O Vital Signs Date Time Temp Pulse Resp B/P (MAP) Pulse Ox O2 Delivery O2 Flow Rate FiO2 08/29/19 03:25 36.9 73 18 113/67 (82) 99 Room Air 08/29/19 00:33 36.6 77 18 107/64 (78) 98 Room Air 08/28/19 21:15 80 18 122/67 (85) 98 Room Air 08/28/19 21:00 36.5 77 18 121/65 (83) Room Air 08/28/19 20:45 36.5 86 18 120/63 (82) Room Air 08/28/19 20:30 36.7 79 18 129/63 (85) Room Air 08/28/19 20:15 36.7 78 18 131/62 (85) Room Air 08/28/19 20:00 36.7 97 18 135/83 (100) Room Air 08/28/19 19:37 18 Room Air 08/28/19 19:30 18 Room Air 08/28/19 19:15 81 18 131/83 (99) Room Air 08/28/19 19:00 68 126/76 (93) Room Air 08/28/19 18:45 67 130/74 (92) Room Air 08/28/19 18:30 71 123/67 (85) Room Air 08/28/19 18:15 36.9 76 18 140/72 (94) Room Air 08/28/19 18:00 68 132/73 (92) Room Air 08/28/19 17:45 66 128/73 (91) Room Air 08/28/19 17:30 70 135/74 (94) Room Air 08/28/19 17:15 72 121/66 (84) Room Air 08/28/19 17:00 36.7 70 18 128/74 (92) Room Air 08/28/19 16:45 69 130/73 (92) Room Air 08/28/19 16:30 67 143/72 (95) Room Air 08/28/19 16:15 70 129/71 (90) Room Air 08/28/19 16:00 36.7 66 16 125/74 (91) Room Air 08/28/19 15:45 61 115/73 (87) Room Air 08/28/19 15:30 77 122/72 (89) Room Air 08/28/19 15:15 72 118/69 (85) Room Air 08/28/19 15:00 66 117/66 (83) Room Air 08/28/19 14:45 67 116/74 (88) Room Air 08/28/19 14:30 70 122/67 (85) Room Air 08/28/19 14:15 36.4 68 16 128/66 (86) Room Air 08/28/19 14:00 62 121/72 (88) Room Air 08/28/19 13:45 68 130/64 (86) Room Air 08/28/19 13:40 64 118/70 (86) Room Air 08/28/19 13:35 63 123/75 (91) Room Air 08/28/19 13:30 60 128/78 (95) Room Air 08/28/19 13:25 64 137/79 (98) 97 Room Air 08/28/19 13:20 61 134/79 (97) Room Air 08/28/19 13:15 60 20 133/63 (86) Room Air 08/28/19 13:12 60 129/65 (86) 97 Room Air 08/28/19 13:09 68 129/64 (85) Room Air 08/28/19 13:06 63 127/72 (90) Room Air 08/28/19 13:03 63 139/72 (94) Room Air 08/28/19 13:00 63 140/69 (92) Room Air 08/28/19 12:45 82 141/79 (99) Room Air 08/28/19 12:30 78 143/83 (103) Room Air 08/28/19 12:00 36.5 75 16 140/81 (100) Room Air 08/28/19 11:20 69 123/68 (86) Non Rebreather 10.00 08/28/19 11:00 Non Rebreather 10.00 I & O 08/29/19 07:00 Intake Total 2500 ml Balance 2500 ml Labs Laboratory Tests 08/28/19 11:00: White Blood Count 10.5, Red Blood Count 3.71L, Hemoglobin 10.2L, Hematocrit 32L, Mean Corpuscular Volume 85, Mean Corpuscular Hemoglobin 28, Mean Corpuscular Hemoglobin Concent 32, Red Cell Distribution Width 15.0H, Platelet Count 399, Mean Platelet Volume 9.7, Neutrophils (%) (Auto) 68, Lymphocytes (%) (Auto) 24, Monocytes (%) (Auto) 7, Eosinophils (%) (Auto) 1, Basophils (%) (Auto) 0, Neutrophils # (Auto) 7.2, Lymphocytes # (Auto) 2.5, Monocytes # (Auto) 0.7, Eosinophils # (Auto) 0.1, Basophils # (Auto) 0.0 08/29/19 06:09: White Blood Count 18.3H, Red Blood Count 2.46L, Hemoglobin 7.0L, Hematocrit 21L, Mean Corpuscular Volume 87, Mean Corpuscular Hemoglobin 28, Mean Corpuscular Hemoglobin Concent 32, Red Cell Distribution Width 15.0H, Platelet Count 303, Mean Platelet Volume 9.6, Neutrophils (%) (Auto) 82H, Lymphocytes (%) (Auto) 13, Monocytes (%) (Auto) 5, Eosinophils (%) (Auto) 0, Basophils (%) (Auto) 0, Neutrophils # (Auto) 15.1H, Lymphocytes # (Auto) 2.3, Monocytes # (Auto) 0.9, Eosinophils # (Auto) 0.0, Basophils # (Auto) 0.0 RYAN TAPIA DO Aug 29, 2019 10:41
[2019-08-29] MEDS ORDERED: ACHD5005 PO (10:44)
[2019-08-29] MEDS ORDERED: FERR325T18 PO (10:44)
[2019-08-29] MEDS ORDERED: Benzocaine/Menthol TP (10:44)
[2019-08-29] MEDS ORDERED: DOCU100C37 PO (10:44)
[2019-08-29] MEDS ORDERED: DIBU30OI TOP (10:44)
[2019-08-29] MEDS ORDERED: IBUP-844 PO (10:44)
--- NOTE | 2019-08-29 10:47 | Discharge Inst-Women's Service ---
Discharge Inst-Women's Serv Depart Medication/Instructions New, Converted or Re-Newed RX: RX on Chart Final Diagnosis PPD 2 NVD Acute blood loss Problems Reviewed?: Yes Consults/Follow Up Additional Follow Up: Yes Orders/Referrals Dr. Tapia in 6 weeks Activity Activity: Activity as Tolerated Driving Instructions: No Driving for 1 Week NO SMOKING: NO SMOKING Nothing Inside Vagina: No Douching, No [place], No Tampons Diet Discharge Diet: No Restrictions Symptoms to Report to : Bleeding Excessive, Pain Increased, Fever Over 101 Degrees F, Vaginal Bleeding Increase, Questions/Concerns For Any Problems or Questions: Contact Your Physician RYAN TAPIA DO Aug 29, 2019 10:47
--- NOTE | 2019-08-29 12:30 | NUR ---
VISITORS AT BEDSIDE. REMAINS IN ROOM. GOOD INTERACTION NOTED.
[2019-08-29 13:30] VITALS: BP 97/52
--- NOTE | 2019-08-29 14:45 | NUR ---
ICE PACK FRESHENED. LORTAB 1 TAB P.O. FOR C/O PERINEAL PAIN.
--- NOTE | 2019-08-29 15:59 | NUR ---
INFANT. C/O ABD CRAMPING. WARM BLANKET TO ABDOMEN. ROUTINE MOTRIN GIVEN.
[2019-08-29 18:00] VITALS: BP 108/65
--- NOTE | 2019-08-29 18:00 | NUR ---
VSS. CONTINUES TO DO WELL. RESTING IN BED. S.O AT BEDSIDE. REMAINS IN ROOM.
[2019-08-29 22:01] VITALS: BP 115/65
[2019-08-30] MEDS: HYDROcodone/APAP 5 MG/325 MG (LORTAB) TAB PO PRN ×2 (00:32→08:52)
[2019-08-30] MEDS: IBUPROFEN 600 MG (MOTRIN) TAB PO SCH ×3 (04:02→14:22)
[2019-08-30 04:03] VITALS: BP 117/67
--- NOTE | 2019-08-30 07:45 | NUR ---
Dr Olvera to see patient and new orders for discharge received.
--- NOTE | 2019-08-30 07:54 | Postpartum Progress Note ---
Note Note Day # 2 Subjective: Patient is without complaints. Ambulating, voiding. Tolerating a regular diet without nausea or vomiting. Normal lochia. Pain is well controlled with oral pain medications. Objective: Physical Exam: General - Alert and oriented, no apparent distress Abdomen - Soft, appropriately tender to palpation, non-distended, fundus firm at umbilicus Extremities - no edema, negative Lissa's bilaterally Assessment: PPD 2 NVD Acute blood loss anemia- asymptomatic Plan: Routine care. Encourage breast feeding. Encourage ambulation. Ferrous sulfate supplementation. Plan for discharge today Vitals - Labs Vital Signs - I&O Vital Signs Date Time Temp Pulse Resp B/P (MAP) Pulse Ox O2 Delivery O2 Flow Rate FiO2 08/30/19 04:03 36.6 76 18 117/67 (84) 98 08/29/19 22:01 36.5 79 18 115/65 (82) 97 08/29/19 18:00 36.2 71 18 108/65 (79) 97 08/29/19 13:30 36.8 72 18 97/52 (67) 98 Room Air 08/29/19 09:00 36.8 77 18 124/63 (83) 99 Room Air RYAN TAPIA DO Aug 30, 2019 07:54
[2019-08-30 08:57] VITALS: BP 113/68
[2019-08-30] MEDS: DOCUSATE SODIUM 100 MG (COLACE) CAP PO SCH (12:13)
[2019-08-30] MEDS: FERROUS SULF 325 MG (IRON) TAB PO SCH (12:13)
[2019-08-30 14:21] VITALS: BP 124/66
--- NOTE | 2019-08-30 15:35 | NUR ---
Discharge instructions explained, signed and copy to patient. pt verbalized understanding of instructions and denied questions at this time. medications discussed with pt and pt verbalized understanding.
--- NOTE | 2019-08-30 16:18 | NUR ---
Discharged to home. Ambulates self downstairs to private vehicle with belongings in hand. Accompanied by staff member
== END 2019-08-30 16:18 | disposition home or self-care (01) | DRG 806 ==
LOC: LDRP 10:00
PROVIDERS: ADMIT Obstetrics & Gynecology; ATTEND Obstetrics & Gynecology
PROC: 10E0XZZ Delivery of Products of Conception, External Approach (ICD-10-PCS; principal; 2019-08-28)
PROC: 0W8NXZZ Division of Female Perineum, External Approach (ICD-10-PCS; 2019-08-28)
PROC: 10907ZC Drainage of Amniotic Fluid, Therapeutic from Products of Conception, Via Natural or Artificial Opening (ICD-10-PCS; 2019-08-28)
DX: O76 Abnormality in fetal heart rate and rhythm complicating labor and delivery (principal); O48.0 Post-term pregnancy; O90.81 Anemia of the puerperium; D62 Acute posthemorrhagic anemia; Z37.0 Single live birth; Z3A.40 40 weeks gestation of pregnancy; Z23 Encounter for immunization
CPT/HCPCS: 36415; 85025; 86850; 86900; 86901; 90715

== ENCOUNTER 2020-11-04 15:11 | Outpatient (RCR) | payer BC ==
[~2020-11-04] VITALS: Ht 162 cm; Wt 81.0 kg
[2020-11-04 15:10] VITALS: BP 123/83
[~2020-11-04 15:11] MED LIST changes: +ACHD5005 PO; +Benzocaine/Menthol TP; +DIBU30OI TOP; +DOCU100C37 PO; +FERR325T18 PO; +IBUP-844 PO
[2020-11-04] MEDS ORDERED: FERRIC CARBOXYMALTOSE INJ 750 MG in NS (IVPB) 250 ML IV SCH (15:30)
[2021-01-25] MEDS ORDERED: VITAMIN D (14:37)
[2021-01-25] MEDS ORDERED: VITAMIN B12 INJ (14:41)
[2021-01-25] MEDS ORDERED: PNV11TAB5 PO (14:46)
[2021-01-25] MEDS ORDERED: IRON15TA3 PO (14:46)
[2021-01-25] MEDS ORDERED: ASCO250T55 PO (14:46)
== END 2021-02-02 | disposition home or self-care (01) ==
LOC: SDC 15:11
PROVIDERS: ATTEND Family Medicine
DX: D50.9 Iron deficiency anemia, unspecified (principal)

== ENCOUNTER → 2020-12-02 | Outpatient (CLI) | payer BC ==
[2020-12-02 12:27] LABS: HEMOGLOBIN 13.8 g/dL (11.5-16.0); MEAN PLATELET VOLUME 8.2 fL (9.0-12.2); WHITE BLOOD COUNT 12.2 10^3/uL (4.3-11.0)
--- NOTE | 2020-12-02 12:37 | Diagnostic Imaging Report ---
INDICATION: COUGH DYSPNEA EXPOSURE TO COVID COMPARISON: None. FINDINGS: Frontal and lateral views of the chest demonstrate normal heart size and pulmonary vascularity. The lungs are clear. There are no signs of infiltrate, pleural effusions or pneumothoraces. The visualized osseous structures show no acute abnormalities. IMPRESSION: 1. No acute process. No signs of infiltrates, effusions or pneumothoraces. Dictated by: Dictated on workstation # [id number]
== END ==
LOC: RAD 11:53
PROVIDERS: ATTEND Nurse Practitioner Family
DX: R05 Cough (principal); R06.00 Dyspnea, unspecified; Z20.822 Contact with and (suspected) exposure to COVID-19
CPT/HCPCS: 36415; 71046; 85027; 86738

== ENCOUNTER → 2021-01-14 | Outpatient (CLI) | payer BC ==
--- NOTE | 2021-01-14 16:52 | Diagnostic Imaging Report ---
PROCEDURE: US Thyroid. TECHNIQUE: Multiple real-time grayscale images were obtained of the thyroid in various projections. INDICATION: Weight gain and fatigue FINDINGS: The right thyroid lobe measured 4.0 cm, the left 3.1 cm. Both lobes showed homogenous normal echotexture. There is normal color Doppler blood flow. No solid or cystic thyroidal mass, no suspicious calcifications. IMPRESSION: Normal sonographic appearance of the normal sized nonfocal thyroid. Dictated by: Dictated on workstation # [id number]
== END ==
LOC: RAD 13:00
PROVIDERS: ATTEND Nurse Practitioner Family
DX: R63.5 Abnormal weight gain (principal); R53.83 Other fatigue
CPT/HCPCS: 76536

== ENCOUNTER 2021-01-28 05:31 | Outpatient (RCR) | payer BC ==
[~2021-01-28] VITALS: Ht 162.6 cm; Wt 90.8 kg
[~2021-01-28 05:31] MED LIST changes: +ASCO250T55 PO; +IRON15TA3 PO; +PNV11TAB5 PO; +VITAMIN B12 INJ; +VITAMIN D
== END 2021-01-28 12:07 | disposition home or self-care (01) ==
LOC: PREOP 05:31
PROVIDERS: ATTEND Surgery
DX: Z01.812 Encounter for preprocedural laboratory examination (principal); D50.9 Iron deficiency anemia, unspecified; R19.4 Change in bowel habit; Z20.822 Contact with and (suspected) exposure to COVID-19; Z80.9 Family history of malignant neoplasm, unspecified
CPT/HCPCS: 87635

== ENCOUNTER 2021-02-22 10:23 | Day surgery (SDC) | payer BC ==
[2021-02-22] VITALS (7 sets, daily range): BP systolic 98–128; BP diastolic 59–85
[~2021-02-22] VITALS: Ht 162.6 cm; Wt 90.8 kg
[2021-02-22] MEDS ORDERED: LACTATED RINGERS 1,000 ML IV STA (10:38)
[2021-02-22] MEDS ORDERED: HURRICAINE EXT TUBE (BENZOCAINE) XX PRN (10:45)
[2021-02-22] MEDS ORDERED: LACTATED RINGERS 1,000 ML IV ONE (10:47)
[2021-02-22] MEDS ORDERED: PROPOFOL INJECTION 50 ML IV ONE (11:28)
[2021-02-22] MEDS ORDERED: NEBI5TAB8 PO (11:30)
[2021-02-22] MEDS ORDERED: MIDAZOLAM 2 MG/2 ML (VERSED) VIAL ONE (11:43)
--- NOTE | 2021-02-22 12:30 | Progress Note-Post Operative ---
Post-Operative Progess Note Surgeon (s)/Skin Toggler (s) Surgeon KAIT AVERY DO Skin Toggler: na Pre-Operative Diagnosis change in bowel habits, iron def anemia, gerd, family hx colon cancer Post-Operative Diagnosis hiatal hernia, normal colon Procedure & Operative Findings Date of Procedure 02/22/21 Procedure Performed/Findings egd c biopsies, colonoscopy Anesthesia Type per [facility] Estimated Blood Loss Estimated blood loss (mL): na Specimens/Packing Specimens Removed antrum, ge KAIT AVERY DO Feb 22, 2021 12:30
--- NOTE | 2021-02-22 12:31 | Anesthesia-General Post-Op ---
MAC Patient Condition Mental Status/LOC: Same as Preop Cardiovascular: Satisfactory Nausea/Vomiting: Absent Respiratory: Satisfactory Pain: Controlled Complications: Absent Post Op Complications Complications None Follow Up Care/Instructions Patient Instructions None needed. Anesthesiology Discharge Order Discharge Order Patient is doing well, no complaints, stable vital signs, no apparent adverse anesthesia problems. LEAH BERNARD DO Feb 22, 2021 12:31
--- NOTE | 2021-02-22 12:56 | Discharge Inst-Simple/Standard ---
Discharge Inst-Standard Patient Instructions/Follow Up Plan of Care/Instructions/FU: 2 weeks Nya Activity as Tolerated: Yes Discharge Diet: Regular Diet KAIT AVERY DO Feb 22, 2021 12:56
--- NOTE | 2021-02-22 18:19 | OPERATIVE REPORT ---
DATE OF SERVICE: 02/22/2021 PREOPERATIVE DIAGNOSES: Change in bowel habit, iron deficiency anemia, GERD, and family history of colon cancer. POSTOPERATIVE DIAGNOSES: Hiatal hernia and normal colon. PROCEDURES PERFORMED: EGD with biopsies, colonoscopy. SURGEON: Kait Fay DO. ANESTHESIA: Per MDA. ESTIMATED BLOOD LOSS: None. COMPLICATIONS: None. INDICATIONS FOR PROCEDURE: The patient is a 35-year-old female with change in bowel habit with iron deficiency anemia, GERD, and family history of colon cancer. She understands the risks and benefits of having EGD and colonoscopy performed to further evaluate her GI tract. She understands risks and benefits and wishes to proceed. Consent was signed in the chart. DESCRIPTION OF PROCEDURE: The patient was taken to the endoscopy suite and placed in the left lateral recumbent position. Timeout was performed. Scope was inserted in the mouth, down the esophagus, stomach and into the duodenum without difficulty. There were no polyps, masses or ulcerations. Scope was slowly retracted back into the stomach, where it was further insufflated. No polyps, masses or ulcerations. Biopsy of the antrum was obtained. Scope was retroflexed noting a small to moderate size hiatal hernia, no other pathology. Scope was returned to its normal position, slowly withdrawn to distal esophagus. Biopsy of the GE junction was obtained. There were no polyps, masses or ulcerations. Scope was then slowly retracted back until completely removed. A digital rectal exam was performed noting an anal skin tag. No palpable polyps, masses or ulcerations. Scope was inserted in the rectum, advanced all the way to the cecum with minimal difficulty. Prep was adequate with irrigation and suction. Scope was then slowly retracted back. There were no polyps, masses or ulcerations within the cecum, ascending, transverse, descending and sigmoid colon. Once in the rectum, scope was retroflexed noting no other pathology. The patient tolerated the procedure well without any complications. She was taken to the recovery room in a stable condition. RECOMMENDATIONS: The patient with anal skin tag and she elected to have this removed. We will discuss this with her if it is bothersome. She does not need a repeat colonoscopy until per screening guidelines since family history of colon cancer. I would recommend this in 10 years before the diagnosis. We will await biopsies of the upper GI tract and further recommendations pending those results. Job ID: [id number] DocumentID: [id number] Dictated Date: 02/22/2021 12:33:00 Machine Clothing Man Date: 02/22/2021 18:19:10 Dictated By: KAIT FAY DO
== END 2021-02-22 13:10 | disposition home or self-care (01) ==
LOC: ENDO 10:23
PROVIDERS: ATTEND Surgery
DX: K21.00 Gastro-esophageal reflux disease with esophagitis, without bleeding (principal); D50.9 Iron deficiency anemia, unspecified; Z80.0 Family history of malignant neoplasm of digestive organs; K44.9 Diaphragmatic hernia without obstruction or gangrene; J45.909 Unspecified asthma, uncomplicated; E66.9 Obesity, unspecified; Z68.34 Body mass index [BMI] 34.0-34.9, adult; Z79.51 Long term (current) use of inhaled steroids; Z79.899 Other long term (current) drug therapy; Z88.2 Allergy status to sulfonamides; Z91.048 Other nonmedicinal substance allergy status; Z91.018 Allergy to other foods; Z91.012 Allergy to eggs; Z91.011 Allergy to milk products; Z87.891 Personal history of nicotine dependence; Z80.9 Family history of malignant neoplasm, unspecified
CPT/HCPCS: 84703; 88305

== ENCOUNTER → 2021-03-30 | Outpatient (CLI) | payer BC ==
[~2021-03-30] MED LIST changes: +NEBI5TAB8 PO
--- NOTE | 2021-03-30 13:33 | Diagnostic Imaging Report ---
INDICATION: TACHYCARDIA, SOB, COUGH. COMPARISON: 12/02/2020 FINDINGS: Frontal and lateral views of the chest demonstrate normal heart size and pulmonary vascularity. The lungs are clear. There are no signs of infiltrate, pleural effusions or pneumothoraces. The visualized osseous structures show no acute abnormalities. IMPRESSION: 1. No acute process. No signs of infiltrates, effusions or pneumothoraces. Dictated by: Dictated on workstation # [id number]
== END ==
LOC: CARD 13:30
PROVIDERS: ATTEND Family Medicine
DX: R00.0 Tachycardia, unspecified (principal); R06.02 Shortness of breath; R05 Cough; R60.9 Edema, unspecified
CPT/HCPCS: 71046; 93306

== ENCOUNTER → 2021-10-13 | Outpatient (CLI) | payer BC ==
[~2021-10-13] MED LIST changes: +IBUP-2558 PO; -IBUP100O28 PO
--- NOTE | 2021-10-13 15:06 | Diagnostic Imaging Report ---
INDICATION: Cough, sore throat. TECHNIQUE: Two view chest 3:03 PM CORRELATION STUDY: 03/30/2021 FINDINGS: The heart size, mediastinal configuration and pulmonary vasculature are within normal limits. The lungs are clear with no consolidating infiltrate. There is no significant pleural effusion or pneumothorax. Visualized osseous structures are unremarkable. IMPRESSION: 1. Negative for acute abnormality of the chest. Dictated by: Dictated on workstation # [id number]
== END ==
LOC: RAD 14:39
PROVIDERS: ATTEND Internal Medicine
DX: J02.9 Acute pharyngitis, unspecified (principal); R05.9 Cough, unspecified
CPT/HCPCS: 71046

== ENCOUNTER → 2022-03-27 | Outpatient (CLI) | payer BC ==
--- NOTE | 2022-03-27 17:22 | Diagnostic Imaging Report ---
INDICATION: . Anatomic survey TECHNIQUE: Multiple real-time grayscale images were obtained over the gravid uterus. COMPARISON: None FINDINGS: Clinical gestational age is 19 weeks and 4 days. There is a single live intrauterine gestation in cephalic presentation. The cervix is measured at 4.6 cm. There is no funneling or endocervical fluid. The placenta is anterior fundal without evidence of previa. A four-chamber heart is seen. The heart rate measures 140 BPM. The lateral ventricle is seen. The cerebellum and cisterna magna are seen. The cord insertion is seen. The bladder is seen. There are 2 umbilical arteries consistent with a three-vessel cord. The kidneys are seen. The profile is seen. The spine is not well seen due to lie. The amniotic fluid is subjectively normal. Biometrical measurements are as follows: Biparietal 4.90 cm, age 20 weeks 6 days. Head circumference 17.64 cm, age 20 weeks 1 days. Abdominal circumference 14.47 cm, age 19 weeks 6 days. Femur length 3.18 cm, age 20 weeks 0 days. Sonographic estimate age: 20 weeks 2 days. Sonographic estimated date of delivery: 08/12/2022. Estimated Weight: 320 gm (+/- 47 gm). LMP percentile: 65%. heart rate: 140 beats per minute. number: 1 of 1. IMPRESSION: 1. Single live intrauterine gestation measuring at 20 weeks and 2 days which is within range of the clinical dates. 2. No abnormality seen on anatomic survey. The spine is not well seen. Dictated by: Dictated on workstation # [id number]
== END ==
LOC: RAD 13:30
PROVIDERS: ATTEND Obstetrics & Gynecology
DX: Z34.02 Encounter for supervision of normal first pregnancy, second trimester (principal); Z3A.20 20 weeks gestation of pregnancy
CPT/HCPCS: 76805

== ENCOUNTER 2022-06-07 06:00 | Inpatient (IN) | payer BC ==
[2022-06-07] VITALS (10 sets, daily range): BP systolic 91–145; BP diastolic 56–77
[~2022-06-07] VITALS: Ht 162.6 cm; Wt 75.0 kg
--- NOTE | 2022-06-07 08:05 | Diagnostic Imaging Report ---
INDICATION: Miscarriage. TECHNIQUE: Multiple real-time grayscale images were obtained over the gravid uterus. COMPARISON: There is a single fetus in a transverse presentation, head to maternal left. No heart motion was detected consistent with demise. Placenta is anterior and fundal. Amniotic fluid volume is normal. FINDINGS: Biometrical measurements are as follows: Biparietal 7.23 cm, age 29 weeks 1 days. Head circumference 27.39 cm, age 30 weeks 0 days. Abdominal circumference 25.10 cm, age 29 weeks 3 days. Femur length 5.33 cm, age 28 weeks 3 days. Sonographic estimate age: 29 weeks 2 days. Sonographic estimated date of delivery: 08/21/2022. Estimated Weight: 1321 gm (+/- 193 gm). LMP percentile: 14%. heart rate: NOT SEEN beats per minute. number: 1 of 1. IMPRESSION: 29 week intrauterine fetus without heart tones consistent with demise. Dictated by: Dictated on workstation # [id number]
[2022-06-07] MEDS ORDERED: CATHETER FLUSH 10 ML SYR IV PRN (08:30)
[2022-06-07] MEDS ORDERED: METOCLOPRAMIDE INJ 10 MG/2 ML (REGLAN) IV ONE (08:30)
[2022-06-07] MEDS ORDERED: FAMOTIDINE 20MG/2ML IV (PEPCID) IV ONE (08:30)
[2022-06-07] MEDS ORDERED: LACTATED RINGERS 1,000 ML IV PRN (08:30)
[2022-06-07] MEDS ORDERED: CITRIC ACID/SOB CIT (BICITRA) 30 ML UDC PO ONE (08:30)
[2022-06-07] MEDS ORDERED: fentaNYL INJ 100 MCG/2 ML AMP IVP PRN (08:45)
[2022-06-07] MEDS ORDERED: metroNIDAZOLE 500MG/100ML IVPB 100 ML IV ONE (08:45)
[2022-06-07] MEDS ORDERED: D5 LR IV SOLUTION 1,000 ML IV SCH ×2 (08:45)
[2022-06-07] MEDS ORDERED: TETANUS,DIPTH,PERTUSS P/F (BOOSTRIX) 0.5 ML VIAL IM ONE (08:45)
[2022-06-07] MEDS ORDERED: ceFAZolin INJECTION 2,000 MG in NS (IVPB) 50 ML IV ONE (08:45)
[2022-06-07] MEDS ORDERED: ONDANSETRON 4 MG/2 ML (SDV) Z0FRAN IVP PRN (08:45)
[2022-06-07] MEDS ORDERED: MIDAZOLAM 2 MG/2 ML (VERSED) VIAL ONE (08:48)
--- NOTE | 2022-06-07 08:48 | Discharge Inst-Surgical ---
Discharge Inst-Surgical Depart Medication/Instructions New, Converted or Re-Newed RX: Transmitted to Pharmacy Consults/Follow Up Orders & Referrals Follow Up Appt: RTC 1 week for incision check. Call to make follow up appt. for patient in [address] Olvera Wound Care: Remove daron, apply benzoin and steri strips. Activity Per routine post instructions. Prescriptions sent from clinic for Percocet, Motrin, Colace. Diet as tolerated Patient may shower or tub bathe as desired. Continue home meds Activity Activity as Tolerated: No Diet Discharge Diet: No Restrictions ELIZABETH DOUGLAS MD Jun 07, 2022 08:48
[2022-06-07] MEDS ORDERED: fentaNYL INJ 100 MCG/2 ML AMP ONE (08:50)
[2022-06-07] MEDS: DOCUSATE SODIUM 100 MG (COLACE) CAP PO SCH ×2 (09:00→20:59)
[2022-06-07] MEDS ORDERED: DOCUSATE SODIUM 100 MG (COLACE) CAP PO SCH (09:00)
[2022-06-07] MEDS ORDERED: OXYTOCIN PRE-MIX DRIP 500 ML IV ONE ×2 (09:02→10:49)
[2022-06-07] MEDS ORDERED: KETAMINE 50 MG/5 ML SYRINGE ONE (09:02)
[2022-06-07] MEDS ORDERED: ceFAZolin 2 GM IV Premixed 50 ML ONE (09:17)
[2022-06-07 09:18] LABS: BASOPHILS # (AUTO) 0.1 10^3/uL (0.0-0.1); BASOPHILS % (AUTO) 0 % (0-10); EOSINOPHILS # (AUTO) 0.1 10^3/uL (0.0-0.3); EOSINOPHILS % (AUTO) 1 % (0-10); HEMATOCRIT 34 % (35-52); HEMOGLOBIN 11.2 g/dL (11.5-16.0); LYMPHOCYTES # (AUTO) 2.2 10^3/uL (1.0-4.0); LYMPHOCYTES % (AUTO) 15 % (12-44); MEAN CORPUSCULAR HEMOGLOBIN 29 pg (25-34); MEAN CORPUSCULAR HGB CONC 33 g/dL (32-36); MEAN CORPUSCULAR VOLUME 88 fL (80-99); MEAN PLATELET VOLUME 9.4 fL (9.0-12.2); MONOCYTES # (AUTO) 0.5 10^3/uL (0.0-1.0); MONOCYTES % (AUTO) 4 % (0-12); NEUTROPHILS # (AUTO) 11.5 10^3/uL (1.8-7.8); NEUTROPHILS % (AUTO) 80 % (42-75); PLATELET COUNT 329 10^3/uL (130-400); WHITE BLOOD COUNT 14.4 10^3/uL (4.3-11.0)
[2022-06-07] MEDS: LACTATED RINGERS 1,000 ML IV PRN ×2 (09:20→10:00)
--- NOTE | 2022-06-07 09:27 | History & Physical ---
History and Physical Date Seen by Provider: Jun 07, 2022 Time Seen by Provider: 07:00 This patient is a 37-year-old 3 para [address] Olvera's for whom I am covering. She presents at 29 weeks gestation with complaint of decreased movement for about 24 hours. heart tones are not detectable with hand-held Doppler. Bedside ultrasound is obtained and demonstrates no heart motion consistent with demise. The presentation is Complex and that fetus is in transverse lie with the backup and had right. Patient denies rupture membranes or bleeding. She denies contractions. She has had no problems with this to date. On confirmation of demiseDrRomel Olvera did discuss with the patient management with a transverse lie will be appropriate to proceed with delivery which is what the patient desires.And is admitted now for primary delivery due to transverse lie Allergies are to sulfa drugs, egg, iron, milk, and citrus Medications are vitamins Medical social and surgical history is all per the antepartum record HEENT exam is normal Neck is supple no lymphadenopathy no thyromegaly Abdomen is gravid soft nontender nondistended Extremities show no clubbing or cyanosis. There is no Homans' sign. Pelvic exam is deferred Bedside ultrasound demonstrates a fetus appropriate for 29 weeks gestation with no heart motion. The placenta is intact and anterior. Presentation is complex with transverse lie had right back up Assessment and plan 29-week gestation with demise and transverse lie. Patient has elected to proceed with delivery which is appropriate considering transverse lie. Anesthesia is aware and we are awaiting the operating room 29-week with intrauterine demise Allergies and Home Medications Allergies Coded Allergies: Sulfa (Sulfonamide Antibiotics) (Verified Allergy, Unknown, HIVES, 01/04/17) egg (Verified Allergy, Unknown, 10/25/12) iron (Unverified Allergy, Unknown, 01/25/21) IRON INFUSION SWELLING AND HIVES POST INFUSION. milk (Verified Allergy, Unknown, 02/24/19) Uncoded Allergies: CITRUS (Allergy, Unknown, 10/25/12) Patient Home Medication List Home Medication List Reviewed: Yes Ascorbic Acid/Ascorbate Sodium (Vitamin C 250 mg Tablet Chew) 250 Mg Tab.chew, 250 MG PO DAILY, (Reported) Entered as Reported by: LORI COLLINS on 01/25/21 1306 Iron,Carbonyl (Iron Chews) 15 Mg Tab.chew, 15 MG PO DAILY, (Reported) Entered as Reported by: LORI COLLINS on 01/25/21 1446 Nebivolol HCl (Bystolic) 5 Mg Tablet, 5 MG PO DAILY, (Reported) Entered as Reported by: BETINA BEE on 02/22/21 1130 Ddu659/FA/Omega3/Dha/Fish Oil ( Gummies) 1 Each Tab.chew, 1 EACH PO DAILY, (Reported) Entered as Reported by: LORI COLLINS on 01/25/21 1446 [Vitamin B12 Inj] , WEEK, (Reported) Entered as Reported by: LORI COLLINS on 01/25/21 1441 [Vitamin D Inj Weekly] , (Reported) Entered as Reported by: LORI COLLINS on 01/25/21 1437 ELIZABETH DOUGLAS MD Jun 07, 2022 09:27
[2022-06-07] MEDS: KETOROLAC 30 MG/ML VIAL IVP SCH ×3 (09:49→20:59)
[2022-06-07] MEDS ORDERED: KETOROLAC 30 MG/ML VIAL ONE (10:10)
[2022-06-07] MEDS ORDERED: ONDANSETRON 4 MG/2 ML (SDV) Z0FRAN ONE (10:10)
[2022-06-07] MEDS ORDERED: PHENYLEPHRINE 100 MCG/ML 10 ML (ANESTHESIA) SYR ONE (10:10)
[2022-06-07 10:12] LABS: BAND NEUTROPHILS 0 %; BASOPHILS % (MANUAL) 0 %; EOSINOPHILS % (MANUAL) 0 %; LYMPHOCYTES % (MANUAL) 8 %; MONOCYTES % (MANUAL) 3 %; NEUTROPHILS % (MANUAL) 89 %; RBC MORPH NORMAL
[2022-06-07] MEDS ORDERED: BUPIVACAINE 0.5% 30 ML (SENSORCAINE) VIAL ONE (10:37)
[2022-06-07] MEDS ORDERED: IBUPROFEN 800 MG (MOTRIN) TAB PO SCH (12:00)
[2022-06-07] MEDS: oxyCODONE/APAP 10/325MG (PERCOCET 10) TABLET PO PRN ×5 (12:12→22:36)
[2022-06-07] MEDS: OXYTOCIN PRE-MIX DRIP 500 ML IV SCH ×2 (12:42→13:25)
--- NOTE | 2022-06-07 22:55 | OPERATIVE REPORT ---
DATE OF SERVICE: 06/07/2022 PREOPERATIVE DIAGNOSES: A 29 and 6/7 weeks' gestation with intrauterine demise and with transverse lie. POSTOPERATIVE DIAGNOSES: A 29 and 6/7 weeks' gestation with intrauterine demise and with transverse lie. OPERATIVE PROCEDURE: Primary low transverse delivery of a nonviable male infant that was stillborn. Weight was 2 pounds 7 ounces, time was 0955. There were no Apgars assigned. There wer4e no cord blood pH obtained. It was known that there was demise prior to initiating the procedure. OPERATIVE DESCRIPTION: With the patient in the supine position under satisfactory spinal analgesia, she was prepped and draped in the usual fashion for abdominal surgery. Simons catheter was placed in the urinary bladder. A Pfannenstiel incision was made through the skin with a scalpel, the patient's abdomen entered in the usual manner. Bladder retractor placed in position, clean scalpel used to make a 4 cm hysterotomy incision transversely across to the segment. That lower uterine segment was relatively thick, due to the nature and stage of the . Slightly greenish amniotic fluid was released on hysterotomy. The was delivered by breech extraction in the usual manner. The had no signs of life. There was no pulse. There was no respiratory effort. There was some delamination of the skin, likely due to the duration of nonviable state. The umbilical cord was doubly clamped and cut. The infant passed to the pediatric nurse in attendance for delivery. No effort was made to retrieve cord bloods. The placenta was removed after detaching spontaneously. It was sent to pathology for permanent section. It is noted that there was a single 3 nuchal cord with no other abnormal findings. The uterus was exteriorized after the placenta delivered. The interior was wiped clean with a wet laparotomy sponge. Uterine incision was closed in 3 layers in a running locked fashion to good hemostasis and good reapproximation. The uterus was returned to the abdominal cavity. All blood clot and debris was removed from the abdominal cavity. Sponge and needle counts correct and hemostasis assured, the anterior parietal peritoneum was closed with running suture of 2-0 Vicryl. Rectus muscles were closed with that suture. Rectus fascia was closed with 2-0 Vicryl, subcutaneous tissue was closed with 2-0 Vicryl and the skin was stapled. Sponge and needle counts were correct on completion of the procedure. Blood loss was around 500 mL. The patient tolerated the procedure relatively well and was transferred to the recovery room in stable condition. The infant had been taken by the pediatric nurse in attendance. Job ID: [id number] DocumentID: [id number] Dictated Date: 06/07/2022 13:37:37 Skiver Heel Tap Date: 06/07/2022 22:54:51 Dictated By: ELIZABETH DOUGLAS MD MTDD
[2022-06-08 02:37] VITALS: BP 112/63
[2022-06-08] MEDS: oxyCODONE/APAP 10/325MG (PERCOCET 10) TABLET PO PRN ×3 (02:37→11:59)
[2022-06-08] MEDS: IBUPROFEN 800 MG (MOTRIN) TAB PO SCH ×2 (02:37→08:45)
[2022-06-08 08:45] VITALS: BP 125/75
[2022-06-08] MEDS: DOCUSATE SODIUM 100 MG (COLACE) CAP PO SCH (08:45)
--- NOTE | 2022-06-08 08:55 | Anesthesia-Regional Post-Op ---
Regional Patient Condition Mental Status: Alert, Oriented x3 Circulation: Same as Pre-Op Headache: Absent Sensation: Full Recovery Motor Block: Absent Post Op Complications Complications None Follow Up Care/Instructions Patient Instructions None needed. Anesthesia/Patient Condition Patient is doing well, no complaints, stable vital signs, no apparent adverse anesthesia problems. No complications reported per nursing. SHIRLEY ETIENNE CRNA Jun 08, 2022 08:55
[2022-06-08] MEDS ORDERED: ALPRAZolam 0.25 MG (XANAX) TAB PO SCH (09:00)
[2022-06-08] MEDS ORDERED: ONDANSETRON 4 MG (ZOFRAN) ORAL DISSOLVE TAB PO PRN (09:15)
--- NOTE | 2022-06-08 09:31 | Progress Note ---
Standard Progress Note Progress Notes/Assess & Plan Date Seen by a Provider: Jun 08, 2022 Time Seen by a Provider: 09:30 Progress/Assessment & Plan This patient is without complaint except for her scar over her loss. Patient has good pain control she is ambulating, voiding, tolerating oral intake well. She is requesting discharge home. We discussed discharge at her request would be okay Vital Signs Date Time Temp Pulse Resp B/P (MAP) Pulse Ox O2 Delivery O2 Flow Rate FiO2 06/08/22 02:37 36.2 85 18 112/63 (79) 100 Room Air 06/07/22 23:40 36.0 72 18 110/56 (74) 97 Room Air 06/07/22 21:00 36.2 70 18 122/57 (78) 98 Room Air 06/07/22 17:31 36.6 80 18 102/63 (76) 96 Room Air 06/07/22 14:24 36.5 80 18 114/70 (85) 97 Room Air 06/07/22 11:30 Room Air 06/07/22 11:30 36.7 16 105/72 (83) 99 Room Air 06/07/22 11:15 Room Air 06/07/22 11:15 36.7 16 102/66 (78) 99 Room Air 06/07/22 11:00 Room Air 06/07/22 11:00 36.6 16 107/64 (78) 99 Room Air 06/07/22 10:45 Room Air 06/07/22 10:45 36.3 16 121/77 (92) 99 Room Air 06/07/22 10:35 Room Air 06/07/22 10:35 36.3 16 91/56 (68) 99 Room Air I & O 06/08/22 07:00 Intake Total 2650 ml Output Total 430 ml Balance 2220 ml Vital signs are stable. Patient is afebrile. The abdomen is benign. The surgical incision is clean dry and intact. [place] are in place. Extremities show no clubbing or cyanosis. There is no Homans' sign. Pelvic exam was deferred Assessment and plan Postoperative day #1 status post primary delivery at 29+ weeks gestation for transverse lie with intrauterine demise. Patient is doing well and can be discharged at her request Final Diagnosis 29-week primary delivery for demise ELIZABETH DOUGLAS MD Jun 08, 2022 09:31
[2022-06-08] MEDS ORDERED: PIPERACILLIN SODIUM/TAZOBACTAM 4.5 GM in NS (IVPB) 100 ML IV NR (20:00)
== END 2022-06-08 12:05 | disposition home or self-care (01) | DRG 788 ==
LOC: WSo 06:00 → LDRP 06:00 → WSo 08:29 → WS 11:37
PROVIDERS: ADMIT Obstetrics & Gynecology; ATTEND Obstetrics & Gynecology
PROC: 10D00Z1 Extraction of Products of Conception, Low, Open Approach (ICD-10-PCS; principal; 2022-06-07 09:34)
DX: O36.4XX0 Maternal care for intrauterine death, not applicable or unspecified (principal); Z3A.29 29 weeks gestation of pregnancy; Z37.1 Single stillbirth; O32.2XX0 Maternal care for transverse and oblique lie, not applicable or unspecified
CPT/HCPCS: 36415; 76805; 85007; 85027; 86850; 86900; 86901; 99212

== ENCOUNTER → 2023-01-31 | Outpatient (CLI) | payer BC ==
[~2023-01-31] VITALS: Ht 162.5 cm; Wt 69.1 kg
[~2023-01-31] MED LIST changes: +METOCLOPRAMIDE INJ 10 MG/2 ML (REGLAN) IV ONE; +NS IV 1000 ML 1,000 ML IV ONE; +cefTRIAXone 1 GM PRE-MIX 50 ML IV ONE
[2023-01-31 15:25] VITALS: BP 105/72
[2023-01-31 16:28] LABS: BILIRUBIN,URINE NEGATIVE (NEGATIVE); CLARITY,URINE CLEAR; COLOR,URINE YELLOW; GLUCOSE, URINE (UA) NEGATIVE (NEGATIVE); KETONES,URINE NEGATIVE (NEGATIVE); LEUKOCYTE ESTERASE ,URINE NEGATIVE (NEGATIVE); NITRITE,URINE NEGATIVE (NEGATIVE); PH,URINE 6.5 (5-9); PROTEIN,URINE TRACE (NEGATIVE)
[2023-01-31 16:34] LABS: BASOPHILS # (AUTO) 0.1 10^3/uL (0.0-0.1); BASOPHILS % (AUTO) 1 % (0-10); EOSINOPHILS % (AUTO) 0 % (0-10); HEMATOCRIT 36 % (35-52); HEMOGLOBIN 11.6 g/dL (11.5-16.0); LYMPHOCYTES # (AUTO) 1.8 10^3/uL (1.0-4.0); LYMPHOCYTES % (AUTO) 12 % (12-44); MEAN CORPUSCULAR HEMOGLOBIN 25 pg (25-34); MEAN CORPUSCULAR HGB CONC 32 g/dL (32-36); MEAN CORPUSCULAR VOLUME 78 fL (80-99); MEAN PLATELET VOLUME 9.2 fL (9.0-12.2); MONOCYTES # (AUTO) 0.4 10^3/uL (0.0-1.0); MONOCYTES % (AUTO) 3 % (0-12); NEUTROPHILS # (AUTO) 12.9 10^3/uL (1.8-7.8); NEUTROPHILS % (AUTO) 84 % (42-75); PLATELET COUNT 534 10^3/uL (130-400); WHITE BLOOD COUNT 15.4 10^3/uL (4.3-11.0)
[2023-01-31 16:36] LABS: ALBUMIN 4.8 GM/DL (3.2-4.5); CHLORIDE 106 MMOL/L (98-107); SODIUM 139 MMOL/L (135-145)
[2023-01-31 16:37] LABS: CALCIUM 9.7 MG/DL (8.5-10.1)
[2023-01-31 16:38] LABS: GLUCOSE 107 MG/DL (70-105); TOTAL PROTEIN 8.4 GM/DL (6.4-8.2)
[2023-01-31 16:39] LABS: CARBON DIOXIDE 23 MMOL/L (21-32)
[2023-01-31 16:40] LABS: BILIRUBIN,TOTAL 0.4 MG/DL (0.1-1.0)
[2023-01-31 16:42] LABS: ALKALINE PHOSPHATASE 61 U/L (40-136); CREATININE SERUM 0.76 MG/DL (0.60-1.30); GFR ESTIMATED 104
[2023-01-31 16:43] LABS: BUN/CREATININE RATIO 20
[2023-01-31 16:45] LABS: ALANINE AMINOTRANSFERASE 11 U/L (0-55)
[2023-01-31 17:00] LABS: ANISOCYTOSIS SLIGHT; LYMPHOCYTES % (MANUAL) 14 %; MONOCYTES % (MANUAL) 1 %; NEUTROPHILS % (MANUAL) 85 %; POIKILOCYTOSIS SLIGHT
[2023-01-31 17:17] LABS: BACTERIA,URINE TRACE /HPF; RBC,URINE 0-2 /HPF; WBC,URINE RARE /HPF
== END ==
LOC: SDC 15:23
PROVIDERS: ATTEND Nurse Practitioner Family
DX: E86.0 Dehydration (principal)
CPT/HCPCS: 36415; 80053; 81000; 85007; 85027

== ENCOUNTER → 2023-02-05 | Outpatient (CLI) | payer BC ==
[~2023-02-05] MED LIST changes: -METOCLOPRAMIDE INJ 10 MG/2 ML (REGLAN) IV ONE; -NS IV 1000 ML 1,000 ML IV ONE; -cefTRIAXone 1 GM PRE-MIX 50 ML IV ONE
[2023-02-05 13:59] LABS: BASOPHILS # (AUTO) 0.1 10^3/uL (0.0-0.1); BASOPHILS % (AUTO) 1 % (0-10); EOSINOPHILS # (AUTO) 0.1 10^3/uL (0.0-0.3); EOSINOPHILS % (AUTO) 1 % (0-10); HEMATOCRIT 35 % (35-52); HEMOGLOBIN 11.3 g/dL (11.5-16.0); LYMPHOCYTES # (AUTO) 3.2 10^3/uL (1.0-4.0); LYMPHOCYTES % (AUTO) 28 % (12-44); MEAN CORPUSCULAR HEMOGLOBIN 26 pg (25-34); MEAN CORPUSCULAR HGB CONC 32 g/dL (32-36); MEAN CORPUSCULAR VOLUME 80 fL (80-99); MEAN PLATELET VOLUME 9.2 fL (9.0-12.2); MONOCYTES # (AUTO) 0.6 10^3/uL (0.0-1.0); MONOCYTES % (AUTO) 6 % (0-12); NEUTROPHILS # (AUTO) 7.3 10^3/uL (1.8-7.8); NEUTROPHILS % (AUTO) 64 % (42-75); PLATELET COUNT 431 10^3/uL (130-400); WHITE BLOOD COUNT 11.3 10^3/uL (4.3-11.0)
[2023-02-05 14:31] LABS: LYMPHOCYTES % (MANUAL) 32 %; MONOCYTES % (MANUAL) 1 %; NEUTROPHILS % (MANUAL) 67 %
== END ==
LOC: LAB 13:50
PROVIDERS: ATTEND Nurse Practitioner Family
DX: D72.829 Elevated white blood cell count, unspecified (principal)
CPT/HCPCS: 36415; 85007; 85027

== ENCOUNTER 2023-02-15 17:39 | Emergency (ER) | payer BC ==
[~2023-02-15] VITALS: Ht 162 cm; Wt 67.0 kg
[2023-02-15] MEDS ORDERED: METOCLOPRAMIDE INJ 10 MG/2 ML (REGLAN) IVP ONE (18:15)
[2023-02-15] MEDS ORDERED: NS IV 1000 ML 1,000 ML IV STA (18:15)
[2023-02-15 18:21] LABS: BASOPHILS # (AUTO) 0.1 10^3/uL (0.0-0.1); BASOPHILS % (AUTO) 1 % (0-10); EOSINOPHILS % (AUTO) 0 % (0-10); HEMATOCRIT 35 % (35-52); HEMOGLOBIN 11.2 g/dL (11.5-16.0); LYMPHOCYTES # (AUTO) 1.9 10^3/uL (1.0-4.0); LYMPHOCYTES % (AUTO) 19 % (12-44); MEAN CORPUSCULAR HEMOGLOBIN 26 pg (25-34); MEAN CORPUSCULAR HGB CONC 32 g/dL (32-36); MEAN CORPUSCULAR VOLUME 80 fL (80-99); MEAN PLATELET VOLUME 9.2 fL (9.0-12.2); MONOCYTES # (AUTO) 0.5 10^3/uL (0.0-1.0); MONOCYTES % (AUTO) 5 % (0-12); NEUTROPHILS # (AUTO) 7.8 10^3/uL (1.8-7.8); NEUTROPHILS % (AUTO) 76 % (42-75); PLATELET COUNT 394 10^3/uL (130-400); WHITE BLOOD COUNT 10.3 10^3/uL (4.3-11.0)
[2023-02-15 18:30] LABS: ALBUMIN 4.1 GM/DL (3.2-4.5); POTASSIUM 3.8 MMOL/L (3.6-5.0)
[2023-02-15 18:31] LABS: CALCIUM 8.9 MG/DL (8.5-10.1)
[2023-02-15 18:33] LABS: TOTAL PROTEIN 7.1 GM/DL (6.4-8.2)
[2023-02-15 18:34] LABS: BILIRUBIN,TOTAL 0.4 MG/DL (0.1-1.0)
[2023-02-15 18:36] LABS: CREATININE SERUM 0.67 MG/DL (0.60-1.30)
--- NOTE | 2023-02-15 18:41 | ED Abdominal Pain ---
General Chief Complaint: Abdominal/GI Problems Stated Complaint: VOMITING/ABD PAIN 7 WKS PREG Nursing Triage Note: pt presents to ED with c/o n/v and right sided abdominal pain x 48hours. pt is 7weeks , A1. pt reports having hyperemsis with previous pregnancies. pt sent from urgent care for gallbladder r/o. Source of Information: Patient Exam Limitations: No Limitations History of Present Illness Date Seen by Provider: Feb 15, 2023 Time Seen by Provider: 18:39 Initial Comments Patient is a 37-year-old female who presents the ED for nausea, vomiting and right-sided abdominal pain for the past 48 hours. She reports a pain to her right lateral abdomen sharp intermittent. She reports 20+ episodes of bilious vomiting. She has a history of hyperemesis gravidarum. She is currently 7 weeks . She states in the past she has been on Phenergan, Zofran and Reglan. Patient denies of any current abdominal pain. Patient Was seen at [facility] [place] and sent to the ER concern for gallbladder disease. She received 2 L of fluid, Phenergan with continue vomiting. Concern for dehydration and gallbladder disease. Patient has not been able to eat. She states she feels slightly feverish. She was given a antibiotic by her primary care physician Airam Salgado a week ago and developed a yeast infection. Not currently on antibiotics besides IM injection of Rocephin today. Denies chest pain, shortness of breath, headache, dizziness. Denies of any urinary symptoms or vaginal bleeding. History of endometriosis with surgical intervention. Patient is . Patient's [facility]TER is at [facility]. Allergies and Home Medications Allergies Coded Allergies: Sulfa (Sulfonamide Antibiotics) (Verified Allergy, Unknown, HIVES, 01/31/23) egg (Verified Allergy, Unknown, 01/31/23) iron (Verified Allergy, Unknown, 01/31/23) IRON INFUSION SWELLING AND HIVES POST INFUSION. milk (Verified Allergy, Unknown, 01/31/23) Uncoded Allergies: CITRUS (Allergy, Unknown, 10/25/12) Patient Home Medication List Home Medication List Reviewed: Yes Ascorbic Acid/Ascorbate Sodium (Vitamin C 250 mg Tablet Chew) 250 Mg Tab.chew, 250 MG PO DAILY, (Reported) Entered as Reported by: LORI COLLINS on 01/25/21 1446 Iron,Carbonyl (Iron Chews) 15 Mg Tab.chew, 15 MG PO DAILY, (Reported) Entered as Reported by: LORI COLLINS on 01/25/21 1446 Nebivolol HCl (Bystolic) 5 Mg Tablet, 5 MG PO DAILY, (Reported) Entered as Reported by: BETINA BEE on 02/22/21 1130 Hpx313/FA/Omega3/Dha/Fish Oil ( Gummies) 1 Each Tab.chew, 1 EACH PO DAILY, (Reported) Entered as Reported by: LORI COLLINS on 01/25/21 1446 [Vitamin B12 Inj] , WEEK, (Reported) Entered as Reported by: LORI COLLINS on 01/25/21 1441 [Vitamin D Inj Weekly] , (Reported) Entered as Reported by: LORI COLLINS on 01/25/21 1437 Review of Systems Review of Systems Constitutional: No chills; malaise, weakness EENTM: No Double Vision, No Eye Pain Respiratory: Denies Cough, Denies Orthopnea, Denies Shortness of Air Cardiovascular: Denies Chest Pain Gastrointestinal: Abdominal Pain; Denies Diarrhea; Nausea, Vomiting Genitourinary: Denies Burning, Denies Discharge Musculoskeletal: No back pain, No joint pain Skin: No change in color All Other Systems Reviewed Negative Unless Noted: Yes Past Vmpkzqq-Rwnonw-Feqwet Hx Immunizations Up To Date Tetanus Booster (TDap): Unknown Seasonal Allergies Seasonal Allergies: Yes Past Medical History Surgeries: Yes Respiratory: No Asthma Cardiac: No Heart Murmur Neurological: No Reproductive Disorders: Yes (CPP, LLQ PAIN, LEFT COMPLEX CYST OVARY) Female Reproductive Disorders: Endometriosis Sexually Transmitted Disease: No HIV/AIDS: No Genitourinary: No Gastrointestinal: Yes Gastroesophageal Reflux Musculoskeletal: No (INFLAMMATION AND SWELLING/ BEING TESTED FOR AUTOIMMUNE DISEASES) Endocrine: No HEENT: No Loss of Vision: Denies Hearing Impairment: Denies Cancer: No Psychosocial: No Integumentary: No Blood Disorders: Yes (ANEMIA) Adverse Reaction/Blood Tranf: No Family Medical History No Pertinent Family Hx Physical Exam Vital Signs Vital Signs - First Documented 02/15/23 18:03 Pulse 73 Resp 18 B/P (MAP) 118/70 (86) Pulse Ox 99 O2 Delivery Room Air Capillary Refill : Less Than 3 Seconds Height/Weight/BMI Height: 5'4.00" Weight: 123lbs. 2.0oz. [id number]; 25.00 BMI Method:Stated General Appearance: WD/WN, no apparent distress HEENT: PERRL/EOMI, normal ENT inspection, TMs normal, pharynx normal Neck: non-tender, full range of motion, supple, normal inspection Respiratory: chest non-tender, lungs clear, normal breath sounds, no respiratory distress, no accessory muscle use Cardiovascular: regular rate, rhythm, no edema, no gallop, no JVD Gastrointestinal: normal bowel sounds, non tender, soft, no organomegaly Extremities: normal range of motion, non-tender, normal inspection, no pedal edema, no calf tenderness Back: normal inspection, no CVA tenderness, no vertebral tenderness Progress/Results/Core Measures Results/Orders Lab Results Laboratory Tests Test 02/15/23 18:10 02/15/23 19:36 Range/Units White Blood Count 10.3 4.3-11.0 10^3/uL Red Blood Count 4.36 3.80-5.11 10^6/uL Hemoglobin 11.2 L 11.5-16.0 g/dL Hematocrit 35 35-52 % Mean Corpuscular Volume 80 80-99 fL Mean Corpuscular Hemoglobin 26 25-34 pg Mean Corpuscular Hemoglobin Concent 32 32-36 g/dL Red Cell Distribution Width 17.0 H 10.0-14.5 % Platelet Count 394 130-400 10^3/uL Mean Platelet Volume 9.2 9.0-12.2 fL Immature Granulocyte % (Auto) 0 % Neutrophils (%) (Auto) 76 H 42-75 % Lymphocytes (%) (Auto) 19 12-44 % Monocytes (%) (Auto) 5 0-12 % Eosinophils (%) (Auto) 0 0-10 % Basophils (%) (Auto) 1 0-10 % Neutrophils # (Auto) 7.8 1.8-7.8 10^3/uL Lymphocytes # (Auto) 1.9 1.0-4.0 10^3/uL Monocytes # (Auto) 0.5 0.0-1.0 10^3/uL Eosinophils # (Auto) 0.0 0.0-0.3 10^3/uL Basophils # (Auto) 0.1 0.0-0.1 10^3/uL Immature Granulocyte # (Auto) 0.0 0.0-0.1 10^3/uL Sodium Level 139 135-145 MMOL/L Potassium Level 3.8 3.6-5.0 MMOL/L Chloride Level 109 H 98-107 MMOL/L Carbon Dioxide Level 19 L 21-32 MMOL/L Anion Gap 11 5-14 MMOL/L Blood Urea Nitrogen 12 7-18 MG/DL Creatinine 0.67 0.60-1.30 MG/DL Estimat Glomerular Filtration Rate 116 BUN/Creatinine Ratio 18 Glucose Level 104 70-105 MG/DL Calcium Level 8.9 8.5-10.1 MG/DL Corrected Calcium 8.8 8.5-10.1 MG/DL Total Bilirubin 0.4 0.1-1.0 MG/DL Aspartate Amino Transf (AST/SGOT) 14 5-34 U/L Alanine Aminotransferase (ALT/SGPT) 17 0-55 U/L Alkaline Phosphatase 48 40-136 U/L Total Protein 7.1 6.4-8.2 GM/DL Albumin 4.1 3.2-4.5 GM/DL Lipase 30 8-78 U/L Urine Color YELLOW Urine Clarity CLEAR Urine pH 6.0 5-9 Urine Specific Romney >=1.030 1.016-1.022 Urine Protein TRACE H NEGATIVE Urine Glucose (UA) NEGATIVE NEGATIVE Urine Ketones 3+ H NEGATIVE Urine Nitrite NEGATIVE NEGATIVE Urine Bilirubin NEGATIVE NEGATIVE Urine Urobilinogen 0.2 < = 1.0 MG/DL Urine Leukocyte Esterase NEGATIVE NEGATIVE Urine RBC (Auto) 1+ H NEGATIVE Urine RBC 0-2 /HPF Urine WBC 0-2 /HPF Urine Squamous Epithelial Cells 10-25 H /HPF Urine Crystals NONE /LPF Urine Bacteria TRACE /HPF Urine Casts NONE /LPF Urine Mucus LARGE H /LPF Urine Culture Indicated NO Urine Test POSITIVE NEGATIVE My Orders Orders - PABLO WELCH Ua Culture If Indicated (02/15/23 17:59) Hcg,Qualitative Urine (02/15/23 17:59) Cbc With Automated Diff (02/15/23 18:15) Comprehensive Metabolic Panel (02/15/23 18:15) Lipase (02/15/23 18:15) Ns Iv 1000 Ml (Sodium Chloride 0.9%) (02/15/23 18:15) Metoclopramide Injection (Reglan Injecti (3/23/23 18:15) Medications Given in ED Current Medications Medications Dose Ordered Sig/Larry Route Start Time Stop Time Status Last Admin Dose Admin Metoclopramide HCl 10 mg ONCE ONCE IVP 02/15/23 18:15 02/15/23 18:17 DC 02/15/23 18:36 10 MG Vital Signs/I&O 02/15/23 02/15/23 18:03 20:58 Pulse 73 74 Resp 18 18 B/P (MAP) 118/70 (86) 109/68 Pulse Ox 99 99 O2 Delivery Room Air Room Air Blood Pressure Mean: 86 Departure Communication (PCP) Reviewed previous ER visits, H&P, lab testing. History of hyperemesis gravidarum. She is a . She is currently 7 weeks . Positive outpatient intrauterine with twins. She reports vomiting throughout her . Excessive bilious vomiting over the past 2 days. She states she has had some pain to the right lateral abdomen upper abdomen with this vomiting. She was seen at [facility] [place] today received 2 L of fluid, and IV Phenergan without any improvement of her vomiting. Thier was Concern for gallbladder disease and was sent to the ER. No previous abdominal surgery. Patient with active vomiting on arrival. CBC, CMP, lipase, IV fluids, IV Reglan was started. She denies of any pelvic pain, vaginal bleeding, vaginal discharge. Differen tial diagnosis of hyperemesis gravidarum, gastritis, cholecystitis, biliary colic. Denies any chest pain, shortness of breath. She IV was initiated. Was given a liter of fluid and Reglan. No vomiting after nausea medication. Urinalysis did show red blood cells +1, 25-50 squamous cell. No evidence of infection. She has no suprapubic pain or current right CVA pain. On arrival she had no specific abdominal tenderness suggesting surgical abdomen. However when she does start to vomit she gets pain to the right lateral upper abdomen and right upper quadrant. Bilious vomiting. Normal white blood count, afebrile with normal liver enzymes and bilirubin. Unlikely acute cholecystitis at this time however due to the continued bilious vomiting outpatient ultrasound was ordered for 9:00 tomorrow morning due to the location of pain, symptoms radiating pain to the back to rule out any form of gallbladder disease. Right before arrival she started feeling sick and vomited 4-5 times that was less bilious. Offered to provide another round of antiemetics and another liter of fluid. She states she has been dealing with this intermittently throughout this and states she has suppositories Phenergan and Reglan oral at home. She would rather go home and sleep at this time. She will return if symptoms worsen. Did offer admission for antiemetics and IV fluid but she felt comfortable going home. I do recommend outpatient ultrasound. Results will be sent to Gris SALGADO her primary care physician. Discussed Tums, discussed diet changes. Return precautions were discussed with patient Impression Primary Impression: Hyperemesis arising during Disposition: HOME, SELF-CARE Condition: Stable Departure-Patient Inst. Decision time for Depature: 20:27 Referrals: JULIET RODRIGEZ MD (PCP/Family) Primary Care Physician Patient Instructions: Hyperemesis Gravidarum Add. Discharge Instructions: Follow-up with ultrasound tomorrow. If any worsening symptoms return back to ED. Recommend continue staying hydrated. Take your antiemetics at home. All discharge instructions reviewed with patient and/or family. Voiced understanding. PABLO WELCH Feb 15, 2023 18:41
[2023-02-15 19:42] LABS: BILIRUBIN,URINE NEGATIVE (NEGATIVE); CLARITY,URINE CLEAR; COLOR,URINE YELLOW; GLUCOSE, URINE (UA) NEGATIVE (NEGATIVE); KETONES,URINE 3+ (NEGATIVE); LEUKOCYTE ESTERASE ,URINE NEGATIVE (NEGATIVE); NITRITE,URINE NEGATIVE (NEGATIVE); PROTEIN,URINE TRACE (NEGATIVE)
[2023-02-15 20:14] LABS: BACTERIA,URINE TRACE /HPF; RBC,URINE 0-2 /HPF; WBC,URINE 0-2 /HPF
[2023-02-15 20:58] VITALS: BP 109/68
== END 2023-02-15 20:58 | disposition home or self-care (01) ==
LOC: EDUNIT# 17:39 → ER 17:41
DX: O21.0 Mild hyperemesis gravidarum (principal); O26.891 Other specified pregnancy related conditions, first trimester; R10.11 Right upper quadrant pain; Z3A.01 Less than 8 weeks gestation of pregnancy
CPT/HCPCS: 36415; 80053; 81000; 83690; 84703; 85025

== ENCOUNTER → 2023-02-16 | Outpatient (CLI) | payer BC ==
--- NOTE | 2023-02-16 11:24 | Diagnostic Imaging Report ---
PROCEDURE: US Gallbladder. TECHNIQUE: Multiple real-time grayscale images were obtained over the right upper quadrant in various projections. INDICATION: Right upper quadrant pain. There is a 3.5 cm area of decreased echogenicity in the central portion of left lobe of liver. This is not present on previous ultrasound from 11/16/2016. Remainder of the liver parenchyma is normal. Portal vein is patent with hepatopetal flow. There are stones and sludge in the gallbladder. Gallbladder wall is mildly thickened. Patient had a negative sonographic Garcia's sign. The common duct is not appreciably dilated. Visualized portions of the pancreas are unremarkable. Aorta and IVC are normal. Right kidney measures 11.2 cm in length and appears normal. There is no ascites. IMPRESSION: Cholecystolithiasis with gallbladder stasis. There is a hyperechoic mass in the left lobe of liver measuring 3.5 cm in diameter. Ultrasound features suggest a hemangioma. Full workup recommended when imaging can be safely done in regards to the . Dictated by: Dictated on workstation # [id number]
== END ==
LOC: RAD 09:35
PROVIDERS: ATTEND Physician Assistant
DX: K80.70 Calculus of gallbladder and bile duct without cholecystitis without obstruction (principal); R16.0 Hepatomegaly, not elsewhere classified
CPT/HCPCS: 76705